=== PATIENT | female | born 1950 | race Caucasian/White ===

== ENCOUNTER 2017-09-12 20:39 | Inpatient (IN) | payer OTHER, MEDICARE ==
[~2017-09-12] VITALS: Ht 160 cm; Wt 85.1 kg
[~2017-09-12 20:39] MED LIST: CARV3.125 PO; ECOT81TA2 PO; FURO20 PO; GLUCOMETER XX; GLUCOMTESTSTRIPS XX; KCL10 PO; LEVO50TA4 PO; LISI10 PO; METF500 PO; PRAS10TA PO; PRAV40 PO; VITA20003; Z.0.LANCETS XX
[2017-09-12] MEDS ORDERED: SODIUM CHLORIDE 0.9% FLUSH 10 ML FLUSH IVF PRN (21:00)
[2017-09-12] MEDS ORDERED: LIDOCAINE HCL 1% PF 30 ML VIAL INFIL ONE (21:00)
[2017-09-12 21:03] VITALS: BP_DIAS 61; PULSE 104; RESP 18; O2SAT 100
--- NOTE | 2017-09-12 21:05 | PD ---
HPI Chief Complaint: Syncope/Near-Syncope Time Seen by Provider: 20:50 Travel History International Travel<30 days: No Contact w/Intl Traveler<30days: No Traveled to known affect area: No History of Present Illness HPI This is a 66-year-old female to history of coronary artery disease, hypertension , diabetes, CHF. She presents for evaluation of lightheadedness. She reports a prior to arrival she was walking to the bathroom when she became lightheaded/ dizzy and fell the ground. She hit her head and sustained an occipital scalp laceration. No loss of consciousness. She is complaining of mild aching headache, aggravated by trauma, no alleviating factors. She denies chest pain, shortness of breath, palpitations, nausea or vomiting, blurred vision. She is on Plavix. The paramedics note PVCs on ECG monitoring. Last tetanus vaccination within 5 years. No other complaints. PFSH Past Medical History Blood Disorders: No Cancer: No Cardiovascular Problems: No Diabetes: Yes Diminished Hearing: Yes (RINGING IN HER EARS) Gastrointestinal Disorders: No Genitourinary: No Hypertension: Yes Musculoskeletal: No Neurologic: No Psychiatric: No Reproductive: No Respiratory: No Thyroid Disease: Yes (2/3 PARATHRYROID REMOVED) Past Surgical History Appendectomy: Yes (UNK) Section: Yes (X2) Cholecystectomy: Yes Tonsillectomy: Yes (UNK) Other Surgery: Yes (PARATHYROID REMOVAL) Social History Alcohol Use: No Tobacco Use: No Substance Use: No Allergies-Medications (Allergen,Severity, Reaction): Coded Allergies: procaine (Unverified Allergy, Severe, 06/09/17) Reported Meds & Prescriptions Reported Meds & Active Scripts Active Lasix 20 Mg Tab (Furosemide) 20 Mg Tab 20 Mg PO BID 30 Days Take at 8am and 3pm every day. Take with potassium replacement. Glucophage 500 mg (Metformin HCl) 500 Mg Tab 500 Mg PO BIDPC 30 Days Pravastatin Sodium 40 Mg Tab 40 Mg PO HS 30 Days Klor-Con 10 (Potassium Chloride) 10 Meq Tabcr 10 Meq PO BID 30 Days Take twice a day with Lasix. Prinivil 10 mg (Lisinopril) 10 Mg Tab 10 Mg PO DAILY 30 Days Coreg 3.125 mg (Carvedilol) 3.125 Mg Tab 3.125 Mg PO Q12 30 Days Ecotrin (Aspirin) 81 Mg Tabec 81 Mg PO DAILY 30 Days Glucometer Test Strips (Glucomteststrips) Box 1 Box XX TIDACHS Lancets Box 1 Box XX Glucometer Kit 1 Kit XX Reported Vitamin D (Cholecalciferol) 2,000 Unit Cap Levothyroxine 50 mcg (Levothyroxine Sodium) 50 Mcg Tab 50 Mcg PO DAILY Review of Systems Except as stated in HPI: all other systems reviewed are Neg Physical Exam Narrative GENERAL: Well-developed well-nourished female in no acute distress SKIN: Warm and dry. 1 cm occipital scalp laceration stage I sacral pressure ulcer noted which the patient is aware of. HEAD: Skin as noted above with no underlying bony step-off. Normocephalic. EYES: Pupils equal and round. No scleral icterus. No injection or drainage. ENT: No nasal bleeding or discharge. Mucous membranes pink and moist. NECK: Trachea midline. No JVD. CARDIOVASCULAR: Regular rate and rhythm. No murmur appreciated. RESPIRATORY: No accessory muscle use. Clear to auscultation. Breath sounds equal bilaterally. GASTROINTESTINAL: Abdomen soft, non-tender, nondistended. Hepatic and splenic margins not palpable. MUSCULOSKELETAL: No obvious deformities. No clubbing. No cyanosis. No edema. NEUROLOGICAL: Awake and alert. No obvious cranial nerve deficits. Motor grossly within normal limits. Normal speech. PSYCHIATRIC: Appropriate mood and affect; insight and judgment normal. Data Data Last Documented VS Vital Signs Date Time Temp Pulse Resp B/P (MAP) Pulse Ox O2 Delivery O2 Flow Rate FiO2 09/12/17 21:17 150/61 (90) 09/12/17 21:06 86 100 Nasal Cannula 2.00 09/12/17 21:03 18 Orders Orders Electrocardiogram (09/12/17 20:53) Complete Blood Count With Diff (09/12/17 20:53) Comprehensive Metabolic Panel (09/12/17 20:53) Magnesium (Mg) (09/12/17 20:53) Ckmb (Isoenzyme) Profile (09/12/17 20:53) Troponin I (09/12/17 20:53) Urinalysis - C+S If Indicated (09/12/17 20:53) Blood Glucose (09/12/17 20:53) Ecg Monitoring (09/12/17 20:53) Iv Access Insert/Monitor (09/12/17 20:53) Oximetry (09/12/17 20:53) Sodium Chloride 0.9% Flush (Ns Flush) (09/12/17 21:00) Lidocaine Pf 1% Inj (Xylocaine-Mpf 1% In (09/12/17 21:00) Ct Brain W/O Iv Contrast(Rout) (09/12/17 ) Orthostatic Vital Signs (09/12/17 21:06) Labs Laboratory Tests Test 09/12/17 21:12 White Blood Count 16.4 TH/MM3 Red Blood Count 4.10 MIL/MM3 Hemoglobin 11.7 GM/DL Hematocrit 36.3 % Mean Corpuscular Volume 88.6 FL Mean Corpuscular Hemoglobin 28.6 PG Mean Corpuscular Hemoglobin Concent 32.3 % Red Cell Distribution Width 15.3 % Platelet Count 391 TH/MM3 Mean Platelet Volume 9.0 FL Neutrophils (%) (Auto) 84.9 % Lymphocytes (%) (Auto) 5.5 % Monocytes (%) (Auto) 7.8 % Eosinophils (%) (Auto) 1.3 % Basophils (%) (Auto) 0.5 % Neutrophils # (Auto) 14.0 TH/MM3 Lymphocytes # (Auto) 0.9 TH/MM3 Monocytes # (Auto) 1.3 TH/MM3 Eosinophils # (Auto) 0.2 TH/MM3 Basophils # (Auto) 0.1 TH/MM3 CBC Comment DIFF FINAL Differential Comment Blood Urea Nitrogen 34 MG/DL Creatinine 1.79 MG/DL Random Glucose 181 MG/DL Total Protein 6.4 GM/DL Albumin 2.5 GM/DL Calcium Level 8.9 MG/DL Magnesium Level 1.8 MG/DL Alkaline Phosphatase 75 U/L Aspartate Amino Transf (AST/SGOT) 13 U/L Alanine Aminotransferase (ALT/SGPT) 14 U/L Total Bilirubin 0.3 MG/DL Sodium Level 138 MEQ/L Potassium Level 4.6 MEQ/L Chloride Level 103 MEQ/L Carbon Dioxide Level 26.5 MEQ/L Anion Gap 9 MEQ/L Estimat Glomerular Filtration Rate 28 ML/MIN Total Creatine Kinase 53 U/L Troponin I LESS THAN 0.02 NG/ML [facility] Medical Decision Making Medical Screen Exam Complete: Yes Emergency Medical Condition: Yes Medical Record Reviewed: Yes Differential Diagnosis Dehydration, electrolyte abnormality, closed head injury, intracranial hemorrhage, arrhythmia, symptomatic anemia Narrative Course The patient was placed on ECG monitoring and pulse oximetry. 12 EKG obtained. Plan is for basic lab work, CT of the brain, the laceration will be repaired with concha, she verbally consents. Lab work reveals a WBC count of 16.4, EKG reveals sinus rhythm, RBB, PVCs, T- wave inversions in the lateral leads. This plan time the plan is to admit the patient overnight for observation. She is agreeable. Procedures Procedure Narrative LACERATION LOCATION: Right occipital scalp LENGTH: 1 cm NUMBER OF STITCHES/CONCHA: 4 REPAIR: The area of the laceration was prepped with Betadine and sterilely draped. The laceration was infiltrated with 1% lidocaine. The wound was copiously irrigated and explored without evidence of foreign body, tendon injury or neurovascular injury. The wound was closed using concha. This was a single layer repair. A sterile dressing was applied. The patient was advised to keep the dressing clean and dry. Patient tolerated the procedure well. Diagnosis Primary Impression: Dizziness Additional Impressions: Scalp laceration Qualified Codes: S01.01XA - Laceration without foreign body of scalp, initial encounter Leukocytosis Qualified Codes: D72.829 - Elevated white blood cell count, unspecified Admitting Information Admitting Physician Requests: Observation Vinnie El Sep 12, 2017 21:05
[2017-09-12 21:17] VITALS: BP 150/61
[2017-09-12 21:23] LABS: BASOPHIL # 0.1 TH/MM3 (0-0.2); BASOPHIL % 0.5 % (0.0-2.0); EOSINOPHIL # 0.2 TH/MM3 (0-0.4); EOSINOPHIL % 1.3 % (0.0-4.0); HEMATOCRIT 36.3 % (35.0-46.0); HEMO FLAGS DIFF FINAL; LYMPH % 5.5 % (9.0-44.0); LYMPHOCYTE # 0.9 TH/MM3 (1.0-4.8); MEAN CELL VOLUME 88.6 FL (80.0-100.0); MEAN CORPUSCULAR HEMOGLOBIN 28.6 PG (27.0-34.0); MEAN CORPUSCULAR HGB CONC 32.3 % (32.0-36.0); MONO % 7.8 % (0.0-8.0); NEUT % 84.9 % (16.0-70.0); PLATELET COUNT 391 TH/MM3 (150-450); RED CELL DISTRIBUTION WIDTH 15.3 % (11.6-17.2); WHITE BLOOD COUNT 16.4 TH/MM3 (4.0-11.0)
--- NOTE | 2017-09-12 21:51 | RADRPT ---
EXAM DATE/TIME: 09/12/2017 21:41 [facility] COMPARISON: No previous studies available for comparison. INDICATIONS : Trauma; fall. Small laceration to right parietal region. RADIATION DOSE: 33.01 CTDIvol (mGy) MEDICAL HISTORY : Cardiovascular disease. Diabetes mellitus type 2. SURGICAL HISTORY : Appendectomy. Cholecystectomy.Hysterectomy. ENCOUNTER: Initial ACUITY: 1 day PAIN SCALE: 5/10 LOCATION: cranial TECHNIQUE: Multiple contiguous axial images were obtained of the head. Using automated exposure control and adj ustment of the mA and/or kV according to patient size, radiation dose was kept as low as reasonably a chievable to obtain optimal diagnostic quality images. DICOM format image data is available electro nically for review and comparison. FINDINGS: CEREBRUM: The ventricles are normal for age. No evidence of midline shift, mass lesion, hemorrhage or acute in farction. No extra-axial fluid collections are seen. POSTERIOR FOSSA: The cerebellum and brainstem are intact. The 4th ventricle is midline. The cerebellopontine angle i s unremarkable. EXTRACRANIAL: There is a small right parietal scalp contusion with skin concha. Small amount of fluid seen in the right maxillary air cell. SKULL: The calvaria is intact. No evidence of skull fracture. CONCLUSION: No bleed or other acute intracranial abnormality. Mild sinus disease. Avery Jonas MD on September 12, 2017 at 21:48 Board Certified Radiologist. This report was verified electronically.
[2017-09-12 21:53] LABS: ALKALINE PHOSPHATASE 75 U/L (45-117); ALT (GPT) 14 U/L (10-53); ANION GAP 9 MEQ/L (5-15); AST (GOT) 13 U/L (15-37); BICARBONATE 26.5 MEQ/L (21.0-32.0); BLOOD UREA NITROGEN 34 MG/DL (7-18); CHLORIDE 103 MEQ/L (98-107); CREATINE KINASE 53 U/L (26-192); GLOMERULAR FILTRATION RATE 28 ML/MIN (>89); MAGNESIUM 1.8 MG/DL (1.5-2.5); POTASSIUM 4.6 MEQ/L (3.5-5.1); SODIUM (NA) 138 MEQ/L (136-145); TOTAL BILIRUBIN ADULT 0.3 MG/DL (0.2-1.0)
[2017-09-12] MEDS ORDERED: BISACODYL 10 MG SUPP RECTAL PRN (22:15)
[2017-09-12] MEDS ORDERED: GLUCAGON 1 MG/ML VIAL OTHER PRN (22:15)
[2017-09-12] MEDS ORDERED: DEXTROSE 50% IN WATER 50 ML VIAL(D50) IV PUSH PRN (22:15)
[2017-09-12] MEDS ORDERED: ONDANSETRON HCL 4 MG/2 ML VIAL IVP PRN (22:15)
[2017-09-12] MEDS ORDERED: LACTULOSE SYRUP 20 GM/30 ML CUP PO PRN (22:15)
[2017-09-12] MEDS ORDERED: SODIUM CHLORIDE 0.9% FLUSH 10 ML FLUSH IV FLUSH PRN (22:15)
[2017-09-12] MEDS ORDERED: SENNOSIDES 8.6 MG TAB PO PRN (22:15)
[2017-09-12] MEDS ORDERED: MAGNESIUM HYDROXIDE SUSP 30 ML CUP PO PRN (22:15)
--- NOTE | 2017-09-12 22:17 | HHI.HP ---
[facility] Primary [facility] Physician Juani Avitia M.D. Admission Diagnosis dizziness, leukocytosis Diagnoses: (1) Near syncope Diagnosis: Principal (2) Fall Diagnosis: Principal (3) Dizziness Diagnosis: Principal (4) Scalp laceration Diagnosis: Principal (5) Leukocytosis Diagnosis: Principal (6) Renal insufficiency Diagnosis: Principal (7) CHF (congestive heart failure) Diagnosis: Principal (8) DM (diabetes mellitus) Diagnosis: Principal Travel History International Travel<30 Days: No Contact w/Intl Traveler <30 Da: No Traveled to Known Affected Are: No History of Present Illness This is a 66-year-old female with a PMH of HTN, CAD, CHF (Echo 01/24/15 w/ EF 40- 45%), DM and Chronic Dizziness who was brought to the ER by EMS secondary to fall w/ near syncope. Per patient she was walking into her bathroom when she had sudden dizziness, called for Daughter but she didn't make it to her in time , +hit head on counter. Pt denies LOC. States she has history of chronic dizziness for which she is on Meclizine. PCP recently decreased Bumex dose due to dizziness. Follows w/ Dr. Caruso as outpatient, states recent Echo 1mo ago w/ improved EF, no records available. On ASA/Plavix. On arrival, BP 150/61 , HR 104, O2 sat 100% on 2L NC. WBC 16.4. Creatinine 1.79, previously 3.03 on 06/25/17. Troponin negative. CT Head Negative. Review of Systems Except as stated in HPI: all other systems reviewed are Neg ROS: 14 point review of systems otherwise negative. Past Family Social History Past Medical History PMH: HTN, CAD, CHF (Echo 01/24/15 w/ EF 40-45%), DM and Chronic Dizziness Past Surgical History PAST SURGICAL HISTORY: Appendectomy, , Cholecystectomy, Tonsillectomy , Parathyroidectomy Allergies: Coded Allergies: procaine (Unverified Allergy, Severe, 06/09/17) Family History PAST FAMILY HISTORY: Reviewed, positive for DM. Social History PAST SOCIAL HISTORY: Negative for alcohol, tobacco or drugs. Physical Exam Vital Signs Vital Signs Date Time Temp Pulse Resp B/P (MAP) Pulse Ox O2 Delivery O2 Flow Rate FiO2 09/12/17 21:17 150/61 (90) 09/12/17 21:06 86 100 Nasal Cannula 2.00 09/12/17 21:03 104 18 /61 100 Physical Exam PE: GENERAL: Pleasant middle-aged white female in no acute distress. Daughter at bedside HEENT: PERRLA, EOMI. No scleral icterus or conjunctival pallor. No lid lag or facial droop. Occipital scalp laceration, s/p concha. CARDIOVASCULAR: Regular rate and rhythm. No obvious murmurs to auscultation. No chest tenderness to palpation. RESPIRATORY: No obvious rhonchi or wheezing. Clear to auscultation. Breath sounds equal bilaterally. GASTROINTESTINAL: Abdomen soft, non-tender, nondistended. BS normal. MUSCULOSKELETAL: Extremities without clubbing, cyanosis, or edema. No obvious deformities. Sacral decubitus ulcer, chronic. NEUROLOGICAL: Awake, alert and oriented x4. No focal neurologic deficits. Moving both upper and lower extremities spontaneously. Laboratory Laboratory Tests Test 09/12/17 21:12 White Blood Count 16.4 Red Blood Count 4.10 Hemoglobin 11.7 Hematocrit 36.3 Mean Corpuscular Volume 88.6 Mean Corpuscular Hemoglobin 28.6 Mean Corpuscular Hemoglobin Concent 32.3 Red Cell Distribution Width 15.3 Platelet Count 391 Mean Platelet Volume 9.0 Neutrophils (%) (Auto) 84.9 Lymphocytes (%) (Auto) 5.5 Monocytes (%) (Auto) 7.8 Eosinophils (%) (Auto) 1.3 Basophils (%) (Auto) 0.5 Neutrophils # (Auto) 14.0 Lymphocytes # (Auto) 0.9 Monocytes # (Auto) 1.3 Eosinophils # (Auto) 0.2 Basophils # (Auto) 0.1 CBC Comment DIFF FINAL Differential Comment Blood Urea Nitrogen 34 Creatinine 1.79 Random Glucose 181 Total Protein 6.4 Albumin 2.5 Calcium Level 8.9 Magnesium Level 1.8 Alkaline Phosphatase 75 Aspartate Amino Transf (AST/SGOT) 13 Alanine Aminotransferase (ALT/SGPT) 14 Total Bilirubin 0.3 Sodium Level 138 Potassium Level 4.6 Chloride Level 103 Carbon Dioxide Level 26.5 Anion Gap 9 Estimat Glomerular Filtration Rate 28 Total Creatine Kinase 53 Troponin I LESS THAN 0.02 Result Diagram: 09/12/17211109/12/172111 Caprini VTE Risk Assessment Caprini VTE Risk Assessment: No/Low Risk (score <= 1) Caprini Risk Assessment Model Point Value = 1 Point Value = 2 Point Value = 3 Point Value = 5 Age 41-60 Minor surgery BMI > 25 kg/m2 Swollen legs Varicose veins or History of unexplained or recurrent spontaneous Oral contraceptives or hormone replacement Sepsis (< 1 month) Serious lung disease, including pneumonia (< 1 month) Abnormal pulmonary function Acute myocardial infarction Congestive heart failure (< 1 month) History of inflammatory bowel disease Medical patient at bed rest Age 61-74 Arthroscopic surgery Major open surgery (> 45 min) Laparoscopic surgery (> 45 min) Malignancy Confined to bed (> 72 hours) Immobilizing plaster cast Central venous access Age >= 75 History of VTE Family history of VTE Factor V Leiden Prothrombin [id number] Lupus anticoagulant Anticardiolipin antibodies Elevated serum homocysteine Heparin-induced thrombocytopenia Other congenital or acquired thrombophilia Stroke (< 1 month) Elective arthroplasty Hip, pelvis, or leg fracture Acute spinal cord injury (< 1 month) Prophylaxis Regimen Total Risk Factor Score Risk Level Prophylaxis Regimen 0-1 Low Early ambulation 2 Moderate Order ONE of the following: *Sequential Compression Device (SCD) *Heparin 5000 units SQ BID 3-4 Higher Order ONE of the following medications: *Heparin 5000 units SQ TID *Enoxaparin/Lovenox 40 mg SQ daily (WT < 150 kg, CrCl > 30 mL/min) *Enoxaparin/Lovenox 30 mg SQ daily (WT < 150 kg, CrCl > 10-29 mL/min) *Enoxaparin/Lovenox 30 mg SQ BID (WT < 150 kg, CrCl > 30 mL/min) AND/OR *Sequential Compression Device (SCD) 5 or more Highest Order ONE of the following medications: *Heparin 5000 units SQ TID (Preferred with Epidurals) *Enoxaparin/Lovenox 40 mg SQ daily (WT < 150 kg, CrCl > 30 mL/min) *Enoxaparin/Lovenox 30 mg SQ daily (WT < 150 kg, CrCl > 10-29 mL/min) *Enoxaparin/Lovenox 30 mg SQ BID (WT < 150 kg, CrCl > 30 mL/min) AND *Sequential Compression Device (SCD) Assessment and Plan Problem List: (1) Near syncope ICD Code: R55 - Syncope and collapse (2) Fall ICD Code: W19.XXXA - Unspecified fall, initial encounter (3) Dizziness ICD Code: R42 - Dizziness and giddiness (4) Scalp laceration ICD Code: S01.01XA - Laceration without foreign body of scalp, initial encounter Status: Acute (5) Renal insufficiency ICD Code: N28.9 - Disorder of kidney and ureter, unspecified (6) Leukocytosis ICD Code: D72.829 - Elevated white blood cell count, unspecified (7) CHF (congestive heart failure) ICD Code: I50.9 - CHF (congestive heart failure) Status: Acute (8) DM (diabetes mellitus) ICD Code: E11.9 - Type 2 diabetes mellitus without complications Assessment and Plan A/P: 1. Near Syncope: c/o acute onset of dizziness while walking to the bathroom w / near syncopal event. Initial trop negative, EKG w/ PVC's and lateral T-wave inversions. Admit for Observation, Telemetry, check serial cardiac enzymes to r /o cardiac ischemia. 2. Fall: w/ head trauma, CT Head w/ no acute findings, images reviewed by me. PT for eval/tx. 3. Scalp Laceration: secondary to above, s/p concha in ER, c/o headache, analgesics/antiemetics as needed. 4. Dizziness: Chronic. On Meclizine at home, likely compounded by over- diuresis. IVF-caution w/ CHF. 5. CHF: Chronic. Systolic/Diastolic. Cath 08/14/16 s/p JOHN to RCA, noted to have Diastolic Dysfunction. Echo 01/24/15 w/ EF 40-45%. States recent Echo w/ Dr. Caruso w/ improved EF, records unavailable. No evidence of fluid overload at this time. Resume home medications. Consult Dr. Caruso as needed. 6. Leukocytosis: WBC 16.4. No obvious infectious etiology. U/a pending. Repeat labs in am. 7. Renal Insufficiency: Chronic. Creatinine 1.79, previously 3.03 on . IVF-caution w/ CHF, repeat labs in am. 8. DM: Sliding scale w/ Accu-Cheks. Hold Metformin. 9. DVT Prophylaxis: SCD/Teds. 10. Social work for d/c planning as needed 11. Case discussed w/ ER physician at length. Problem Qualifiers (1) Scalp laceration: Qualified Codes: S01.01XA - Laceration without foreign body of scalp, initial encounter Mariel Schmidt MD Sep 12, 2017 22:17
--- NOTE | 2017-09-12 22:26 | PD ---
Physical Exam Date Seen by Provider: Sep 12, 2017 Time Seen by Provider: 21:30 Narrative I, Dr. Ruiz, have reviewed the advance practice practitioner's documentation and am in agreement, met with the patient face to face, made the diagnosis, and the medical decision making was done by me. *My assessment and Findings: Patient seen and evaluated with PA, presenting here with near syncopal episode, please see PA note for further details. On evaluation, she is awake, oriented 3, and has no focal neurological deficits. EKG shows normal sinus rhythm at a rate of 80 bpm with a right bundle-branch block pattern, frequent PVCs. T-wave inversions are notable in the lateral leads. No signs of acute ST-T elevations. Laboratory Tests Test 09/12/17 21:12 White Blood Count 16.4 TH/MM3 (4.0-11.0) Neutrophils (%) (Auto) 84.9 % (16.0-70.0) Lymphocytes (%) (Auto) 5.5 % (9.0-44.0) Neutrophils # (Auto) 14.0 TH/MM3 (1.8-7.7) Lymphocytes # (Auto) 0.9 TH/MM3 (1.0-4.8) Monocytes # (Auto) 1.3 TH/MM3 (0-0.9) Blood Urea Nitrogen 34 MG/DL (7-18) Creatinine 1.79 MG/DL (0.50-1.00) Random Glucose 181 MG/DL (74-106) Albumin 2.5 GM/DL (3.4-5.0) Aspartate Amino Transf (AST/SGOT) 13 U/L (15-37) Estimat Glomerular Filtration Rate 28 ML/MIN (>89) Troponin I LESS THAN 0.02 NG/ML Last [address] 09/12/17 0000 Signed Impressions: Service Date/Time: Tuesday, September 12, 2017 21:41 - CONCLUSION: No bleed or other acute intracranial abnormality. Mild sinus disease. Avery Jonas MD EKG does show frequent PVCs and a T-wave inversion in the lateral leads. She is not having any current chest pains. Cardiac enzymes are negative. Considering her syncopal episodes, plan would be to admit her for further evaluation. Case is discussed with hospitalist for admission. Data Data Last Documented VS Vital Signs Date Time Temp Pulse Resp B/P (MAP) Pulse Ox O2 Delivery O2 Flow Rate FiO2 09/12/17:17 150/61 (90) 09/12/17 21:06 86 100 Nasal Cannula 2.00 09/12/17 21:03 18 Orders Orders Electrocardiogram (09/12/17 20:53) Complete Blood Count With Diff (09/12/17 20:53) Comprehensive Metabolic Panel (09/12/17 20:53) Magnesium (Mg) (09/12/17 20:53) Ckmb (Isoenzyme) Profile (09/12/17 20:53) Troponin I (09/12/17 20:53) Urinalysis - C+S If Indicated (09/12/17 20:53) Blood Glucose (09/12/17 20:53) Ecg Monitoring (09/12/17 20:53) Iv Access Insert/Monitor (09/12/17 20:53) Oximetry (09/12/17 20:53) Sodium Chloride 0.9% Flush (Ns Flush) (09/12/17 21:00) Lidocaine Pf 1% Inj (Xylocaine-Mpf 1% In (09/12/17 21:00) Ct Brain W/O Iv Contrast(Rout) (09/12/17 ) Orthostatic Vital Signs (09/12/17 21:06) Admit Order (Ed Use Only) (09/12/17 22:16) Labs Laboratory Tests Test 09/12/17 21:12 White Blood Count 16.4 TH/MM3 Red Blood Count 4.10 MIL/MM3 Hemoglobin 11.7 GM/DL Hematocrit 36.3 % Mean Corpuscular Volume 88.6 FL Mean Corpuscular Hemoglobin 28.6 PG Mean Corpuscular Hemoglobin Concent 32.3 % Red Cell Distribution Width 15.3 % Platelet Count 391 TH/MM3 Mean Platelet Volume 9.0 FL Neutrophils (%) (Auto) 84.9 % Lymphocytes (%) (Auto) 5.5 % Monocytes (%) (Auto) 7.8 % Eosinophils (%) (Auto) 1.3 % Basophils (%) (Auto) 0.5 % Neutrophils # (Auto) 14.0 TH/MM3 Lymphocytes # (Auto) 0.9 TH/MM3 Monocytes # (Auto) 1.3 TH/MM3 Eosinophils # (Auto) 0.2 TH/MM3 Basophils # (Auto) 0.1 TH/MM3 CBC Comment DIFF FINAL Differential Comment Blood Urea Nitrogen 34 MG/DL Creatinine 1.79 MG/DL Random Glucose 181 MG/DL Total Protein 6.4 GM/DL Albumin 2.5 GM/DL Calcium Level 8.9 MG/DL Magnesium Level 1.8 MG/DL Alkaline Phosphatase 75 U/L Aspartate Amino Transf (AST/SGOT) 13 U/L Alanine Aminotransferase (ALT/SGPT) 14 U/L Total Bilirubin 0.3 MG/DL Sodium Level 138 MEQ/L Potassium Level 4.6 MEQ/L Chloride Level 103 MEQ/L Carbon Dioxide Level 26.5 MEQ/L Anion Gap 9 MEQ/L Estimat Glomerular Filtration Rate 28 ML/MIN Total Creatine Kinase 53 U/L Troponin I LESS THAN 0.02 NG/ML MDM Medical Record Reviewed: Yes Supervised Visit with MARION: Yes Diagnosis Primary Impression: Dizziness Additional Impressions: Leukocytosis Qualified Codes: D72.829 - Elevated white blood cell count, unspecified Scalp laceration Qualified Codes: S01.01XA - Laceration without foreign body of scalp, initial encounter Admitting Information Admitting Physician Requests: it Nkechi Ruiz MD Sep 12, 2017 22:26
[2017-09-12] MEDS ORDERED: SODIUM CHLOR 0.9% 1000 ML INJ 1,000 ML IV SCH (23:00)
[2017-09-12] MEDS ORDERED: DEXT 5%-NACL 0.45% 500 ML INJ 500 ML IV ONE (23:15)
[2017-09-12 23:48] VITALS: BP_SYST 103; BP_SYST 177; BP_DIAS 71; BP_DIAS 81; RESP 19; RESP 20
[2017-09-13] VITALS (25 sets, daily range): BP systolic 111–129; BP diastolic 51–74; PULSE 67–91; RESP 16–18; TEMP 97.1–98.4; O2SAT 95–100
[2017-09-13] MEDS: ACETAMINOPHEN 325 MG TAB PO PRN ×2 (00:37→10:18)
[2017-09-13] MEDS ORDERED: DEXT 5% IV ONE (01:00)
[2017-09-13] MEDS ORDERED: NACL 0.45% IV ONE (01:00)
[2017-09-13] MEDS ORDERED: AMIODARONE INJ 150 MG in DEXTROSE 5% IN WATER 100ML INJ 100 ML IV ONE ×2 (04:33)
[2017-09-13] MEDS: AMIODARONE INJ 450 MG in DEXTROSE 5% IN WATE(EXCEL) INJ 241 ML IV PRN ×2 (05:17)
[2017-09-13] MEDS: INSULIN ASPART SUPPLEMENTAL SCALE SQ SCH ×4 (07:23→21:00)
--- NOTE | 2017-09-13 08:49 | HHI.PR ---
Subjective Remarks Follow-up for dizziness/presyncope Patient had an episode of ventricular tachycardia overnight, amiodarone started. Presently, patient denies any chest pain or dizziness. Blood pressure is low, orthostatics being taken. Troponin negative 2 so far. Per patient, she had an echocardiogram Thursday in her reducing salon attendant's office. Objective Vitals Vital Signs Date Time Temp Pulse Resp B/P (MAP) Pulse Ox O2 Delivery O2 Flow Rate FiO2 09/13/17 06:00 78 09/13/17 05:17 82 103/57 09/13/17 05:08 90 106/53 09/13/17 05:00 88 09/13/17 04:50 98.0 79 18 119/51 (73) 99 09/13/17 04:50 79 09/13/17 03:35 97.6 79 16 112/57 (75) 95 09/13/17 00:57 98.4 84 16 129/60 (83) 100 09/12/17 23:48 09/12/17 23:48 88 19 177/81 (113) 88 20 103/71 (82) 09/12/17 21:17 150/61 (90) 09/12/17 21:06 86 100 Nasal Cannula 2.00 09/12/17 21:03 104 18 /61 100 Result Diagram: 09/12/17211109/12/172111 Imaging Last Impressions Head CT 09/12/17 0000 Signed Impressions: Service Date/Time: Tuesday, September 12, 2017 21:41 - CONCLUSION: No bleed or other acute intracranial abnormality. Mild sinus disease. Avery Jonas MD Objective Remarks GENERAL: Not in distress but appears not comfortable. HEENT: PERRLA, EOMI. No scleral icterus or conjunctival pallor. No lid lag or facial droop. Occipital scalp laceration, s/p concha. CARDIOVASCULAR: Regular rate and rhythm. No obvious murmurs to auscultation. No chest tenderness to palpation. RESPIRATORY: No obvious rhonchi or wheezing. Clear to auscultation. Breath sounds equal bilaterally. GASTROINTESTINAL: Abdomen soft, non-tender, nondistended. BS normal. MUSCULOSKELETAL: Extremities without clubbing, cyanosis, or edema. No obvious deformities. Sacral decubitus ulcer, chronic. NEUROLOGICAL: Awake, alert and oriented x4. No focal neurologic deficits A/P Problem List: (1) Near syncope ICD Code: R55 - Syncope and collapse (2) Fall ICD Code: W19.XXXA - Unspecified fall, initial encounter (3) Dizziness ICD Code: R42 - Dizziness and giddiness (4) Scalp laceration ICD Code: S01.01XA - Laceration without foreign body of scalp, initial encounter Status: Acute (5) Renal insufficiency ICD Code: N28.9 - Disorder of kidney and ureter, unspecified (6) Leukocytosis ICD Code: D72.829 - Elevated white blood cell count, unspecified (7) CHF (congestive heart failure) ICD Code: I50.9 - CHF (congestive heart failure) Status: Acute (8) DM (diabetes mellitus) ICD Code: E11.9 - Type 2 diabetes mellitus without complications Assessment and Plan This is a 66-year-old female with history of systolic congestive heart failure and diabetes mellitus presenting with presyncope. Fall secondary to Presyncope-complained of acute dizziness and presyncopal event , troponin negative 2. EKG with PVCs and lateral T wave inversions. Patient had an episode of ventricular tachycardia, please see below. Obtain echocardiogram from the office done 4 days ago. With head trauma, CT scan of the head unremarkable. Scalp laceration status post concha from the emergency department. Ventricular tachycardia-nonsustained, discussed with cardiology, patient would likely need a cardiac catheterization, amiodarone started. Orthostatic hypotension- initial orthostatics positive, rechecking now, if positive, will need more fluids. Caution with history of CHF. Patient also has history of chronic dizziness, on meclizine. Chronic systolic and diastolic CHF-Cath 08/14/16 s/p JOHN to RCA, noted to have Diastolic Dysfunction. Echo 01/24/15 w/ EF 40-45%. States recent Echo w/ Dr. Caruso w/ improved EF, will obtain records from outpatient. Records unavailable. No evidence of fluid overload at this time. Resume home medications. Leukocytosis: WBC 16.4. No obvious infectious etiology. U/a pending. Awaiting repeat labs today. Repeat CBC tomorrow. Renal Insufficiency: Chronic. Creatinine 1.79, previously 3.03 on 06/25/17. IVF-caution w/ CHF, awaiting labs today, repeat labs in am. DM: Sliding scale w/ Accu-Cheks. Hold Metformin. DVT Prophylaxis: SCD/Teds. Start physical therapy after cardiac catheterization. Discharge Planning Discharge to home versus home health care once cleared by cardiology. She will likely need a cardiac catheterization. Problem Qualifiers (1) Scalp laceration: Qualified Codes: S01.01XA - Laceration without foreign body of scalp, initial encounter Shelly Dubon MD Sep 13, 2017 08:49
[2017-09-13] MEDS: SODIUM CHLORIDE 0.9% FLUSH 10 ML FLUSH IV FLUSH SCH ×2 (09:00→21:00)
[2017-09-13] MEDS: DOCUSATE SODIUM 50 MG/SENNA 8.6 MG TAB PO SCH ×2 (09:00→22:15)
[2017-09-13] MEDS ORDERED: SODIUM CHLOR 0.9% 1000 ML INJ 1,000 ML IV SCH (09:30)
--- NOTE | 2017-09-13 10:03 | MB ---
cc: ANTHONY NOLASCO MD DATE OF CONSULTATION: 09/13/2017 REASON FOR CONSULTATION: Syncope and VT HISTORY OF PRESENT ILLNESS The patient is a pleasant 66-year-old woman who sees my partner, Dr. Caruso, for history of hypertension, coronary artery disease, congestive heart failure, diabetes and chronic dizziness who presented with what seems like a syncopal episode though it is somewhat unclear if she truly lost consciousness. The patient was using her walker and ended up on the floor unable to get up, and again it is unclear if she lost consciousness. She was notably orthostatic on admission and admitted on telemetry where she had a fast 21 beat of ventricular tachycardia seen. This occurred in the middle the night so it is unclear if she would have been symptomatic. Currently she is feeling very weak, but denies specific symptoms such as chest pain, shortness of breath. Again, she has had somewhat chronic lightheadedness and dizziness, including a true syncopal episode she says back in May which elicited a hospitalization at [facility]. PAST MEDICAL HISTORY: As above. CURRENT MEDICATIONS Amiodarone Glucagon. ALLERGIES PROCAINE PHYSICAL EXAMINATION VITAL SIGNS: Afebrile, pulse 76, respiratory rate 18, BP 111/65 sating 97%. General: Pleasant obese woman appearing much older than her stated age. Neck: No JVD. Lungs: Clear to auscultation bilaterally. Cardiovascular: Regular rate and rhythm, 1 to 2/6 systolic murmur is appreciated. Abdomen: Benign. Extremities: No edema. LABORATORY DATA Sodium 138, potassium 4.6, chloride 103, bicarb 26.5, BUN 34, creatinine 1.79. Cardiac enzymes are negative x2. INR is 1.0, white count 16.4, hematocrit 36.3, platelets 391. IMAGING STUDIES: Head CT was negative. EKG shows sinus rhythm with PVCs and anterolateral T-wave changes consistent with ischemia. Telemetry showed a 21 beat of fast ventricular tachycardia occurring at about 250 beats per minute. IMPRESSION: 1. VT. Patient with a history of coronary artery disease and reduced ejection fraction and fast VT, will likely require cardiac catheterization, somewhat complicated by her renal insufficiency. I will discussed the case with Dr. Gonsalves. Invariably potentially a stress test can be done first but probably a cardiac catheterization will be required if the risk is not too high. She will be getting fluids and hopefully her renal function will improve. 2. Dizziness. It is unclear if her dizziness is actually related to this episode of VT, because she is also orthostatic. She is getting IV fluids. Further recommendations will be based on the ischemic workup as well as getting the results of the echocardiogram which apparently only occurred a couple of days ago in our office, so will not be performed here. Thank you again for the opportunity to participate in this patient's care. MD BHAVANA Hurt/TERRY /9:24 AM /9:58 AM
[2017-09-13] MEDS: SODIUM CHLOR 0.9% 1000 ML INJ 1,000 ML IV SCH ×2 (11:22→21:22)
[2017-09-13] MEDS ORDERED: diphenhydrAMINE HCL 50 MG CAP PO SCH (11:30)
[2017-09-13] MEDS ORDERED: DIAZEPAM 10 MG TAB PO SCH (11:30)
[2017-09-13] MEDS ORDERED: MIDAZOLAM HCL 2 MG/2 ML VIAL IV PUSH SCH (11:30)
--- NOTE | 2017-09-13 11:50 | MB ---
cc: TEO LLANES DATE OF CONSULTATION: 09/13/2017 REASON FOR CONSULTATION: Consider cardiac catheterization. HISTORY OF PRESENT ILLNESS The patient is a 66-year-old white female, followed in our office by Dr. Mono Caruso, with a history of congestive heart failure, coronary disease, diabetes, hypertension, hyperlipidemia, who was brought to the hospital after a syncopal episode. The patient was trying to back into the bathroom with her walker when she suddenly lost consciousness. She believes she was unconscious for only a second or two. There was no definite preceding lightheadedness, palpitations, pain. An hour prior to the episode, she did feel mildly lightheaded for a few minutes. Here in the hospital, monitoring has revealed an episode of nonsustained ventricular tachycardia. The patient also reports an episode of syncope about three months ago, although she was subsequently hospitalized for urosepsis. The patient denies any recent chest pain, although she has been sedentary. She also denies shortness of breath, palpitations, pedal edema, paroxysmal nocturnal dyspnea, fevers. PAST MEDICAL HISTORY 1. Congestive heart failure January 2015 with echocardiogram at that time showing reduced ejection fraction of 40-45%. 2. Hypertension. 3. Diabetes. 4. Coronary artery disease with cardiac catheterization 08/14/16 showing minimal left main, minimal left circumflex, minimal ramus intermedius disease, 60% mid LAD which was evaluated with fractional flow reserve measurement (0.85), 90% distal, 80% mid, 70% ostial right coronary lesions which were stented with 2.5, 2.75, and 3.0 mm drug-eluting stents respectively by Dr. Reilly Brar. PAST SURGICAL HISTORY 1. Appendectomy 2. section twice. 3. Cholecystectomy. 4. Tonsillectomy 5. Subtotal parathyroidectomy CURRENT CARDIAC MEDICATIONS Amiodarone drip ALLERGIES PROCAINE FAMILY HISTORY Noncontributory. SOCIAL HISTORY The patient denies any history of alcohol or tobacco abuse. REVIEW OF SYSTEMS: As in the history of present illness otherwise negative or noncontributory. She also denies headache, visual changes, unilateral weakness or numbness, abdominal pain, melena, dyspepsia, bright red blood per rectum. PHYSICAL EXAMINATION: On physical examination her blood pressure 111/65 with a pulse of 76, respirations 18. GENERAL: She is a well-developed, well-nourished white female in no acute distress. HEENT examination: Jugular venous pressure is normal. Carotid pulses are 2+ bilaterally and without bruits. CHEST: Examination of the chest reveals clear lung gray anteriorly. CARDIAC: She has a regular rhythm and rate without S3-S4 or murmur. ABDOMEN: On abdominal examination she has a soft, nontender abdomen. Bowel sounds are present. There is no definite hepatosplenomegaly. EXTREMITIES: Examination of the extremities reveals no clubbing, cyanosis or edema. Peripheral pulses are normal throughout. LABORATORY DATA Includes WBC 16.4, hemoglobin 11.7, platelets 391, potassium 4.6, BUN 34, creatinine 1.79, negative cardiac enzymes. EKG shows sinus rhythm with frequent PVC, right bundle-branch block, lateral T-wave changes, consider ischemia. IMPRESSION Syncope, nonsustained ventricular tachycardia in a 66-year-old white female with a history of congestive heart failure, hypertension, diabetes, coronary artery disease, status post percutaneous coronary intervention last year. I have been asked to consider the patient for cardiac catheterization. At this point in light of the ventricular tachyarrhythmia, I would agree with the need for coronary angiography. Cardiac enzymes are negative for myocardial infarction. She has had no definite angina symptoms recently although she is sedentary. The patient does have more pronounced lateral T-wave changes on EKG. Her kidney function has improved with creatinine now 1.79. The potential risks of cardiac catheterization including but not limited to , myocardial infarction, stroke, arrhythmia, bleeding, infection, renal failure have been outlined to the patient. She agrees to proceed. RECOMMENDATIONS 1. Cardiac catheterization tomorrow with attempts to minimize dye load. 2. Daily aspirin. 3. Beta whit therapy. Teo Llanes MD Kwaku/TERRY /11:21 AM /11:42 AM MTDKushal
[2017-09-13] MEDS: ASPIRIN EC 81 MG TABEC PO SCH (12:00)
[2017-09-13] MEDS: CARVEDILOL 3.125 MG TAB PO SCH ×2 (12:00→22:15)
[2017-09-13 12:27] LABS: AUTOMATED NEUTROPHIL # 10.1 TH/MM3 (1.8-7.7); BASOPHIL # 0.1 TH/MM3 (0-0.2); BASOPHIL % 0.6 % (0.0-2.0); EOSINOPHIL # 0.2 TH/MM3 (0-0.4); EOSINOPHIL % 1.9 % (0.0-4.0); HEMATOCRIT 34.5 % (35.0-46.0); HEMO FLAGS DIFF FINAL; LYMPH % 6.6 % (9.0-44.0); LYMPHOCYTE # 0.8 TH/MM3 (1.0-4.8); MEAN CELL VOLUME 89.3 FL (80.0-100.0); MEAN CORPUSCULAR HEMOGLOBIN 28.2 PG (27.0-34.0); MEAN CORPUSCULAR HGB CONC 31.6 % (32.0-36.0); MONO % 9.3 % (0.0-8.0); NEUT % 81.6 % (16.0-70.0); PLATELET COUNT 338 TH/MM3 (150-450); RED BLOOD COUNT 3.86 MIL/MM3 (4.00-5.30); RED CELL DISTRIBUTION WIDTH 15.2 % (11.6-17.2); WHITE BLOOD COUNT 12.4 TH/MM3 (4.0-11.0)
[2017-09-13 13:00] LABS: ALKALINE PHOSPHATASE 75 U/L (45-117); ALT (GPT) 12 U/L (10-53); ANION GAP 10 MEQ/L (5-15); AST (GOT) 8 U/L (15-37); BLOOD UREA NITROGEN 29 MG/DL (7-18); CHLORIDE 103 MEQ/L (98-107); GLOMERULAR FILTRATION RATE 31 ML/MIN (>89); POTASSIUM 3.5 MEQ/L (3.5-5.1); SODIUM (NA) 137 MEQ/L (136-145); TOTAL BILIRUBIN ADULT 0.3 MG/DL (0.2-1.0)
--- NOTE | 2017-09-13 13:00 | EKG ---
Date Performed: 09/12/2017 Time Performed: 21:12:29 PTAGE: 66 years EKG: Sinus rhythm WITH FREQUENT VENTRICULAR PREMATURE COMPLEXES RIGHT BUNDLE BRANCH BLOCK MODERATE T-WAVE ABNORMALITY, CONSIDER LATERAL ISCHEMIA ABNORMAL ECG PREVIOUS TRACING 08/14/16 Compared to prior tracing no significant change DOCTOR: Hu Rosas Interpretating Date/Time 09/13/2017 12:59:02
[2017-09-13] MEDS: ACETAMINOPHEN/HYDROcodone 325 MG/5 MG TAB PO PRN (19:43)
[2017-09-14] VITALS (26 sets, daily range): BP systolic 95–122; BP diastolic 48–64; PULSE 68–86; RESP 16–20; TEMP 97.5–98.2; O2SAT 95–98
[2017-09-14] MEDS: ACETAMINOPHEN/HYDROcodone 325 MG/5 MG TAB PO PRN ×2 (00:04→15:28)
[2017-09-14 06:41] LABS: AUTOMATED NEUTROPHIL # 8.7 TH/MM3 (1.8-7.7); BASOPHIL # 0.1 TH/MM3 (0-0.2); BASOPHIL % 1.1 % (0.0-2.0); EOSINOPHIL # 0.5 TH/MM3 (0-0.4); EOSINOPHIL % 4.3 % (0.0-4.0); HEMATOCRIT 32.6 % (35.0-46.0); HEMO FLAGS DIFF FINAL; LYMPH % 8.9 % (9.0-44.0); MEAN CELL VOLUME 89.4 FL (80.0-100.0); MEAN CORPUSCULAR HEMOGLOBIN 29.3 PG (27.0-34.0); MEAN CORPUSCULAR HGB CONC 32.8 % (32.0-36.0); MONO % 10.1 % (0.0-8.0); NEUT % 75.6 % (16.0-70.0); PLATELET COUNT 277 TH/MM3 (150-450); RED BLOOD COUNT 3.65 MIL/MM3 (4.00-5.30); RED CELL DISTRIBUTION WIDTH 15.3 % (11.6-17.2); WHITE BLOOD COUNT 11.5 TH/MM3 (4.0-11.0)
[2017-09-14 07:14] LABS: BICARBONATE 25.9 MEQ/L (21.0-32.0); POTASSIUM 3.5 MEQ/L (3.5-5.1)
[2017-09-14] MEDS: ACETAMINOPHEN/HYDROcodone 325 MG/10 MG TAB PO PRN ×2 (08:13→22:04)
[2017-09-14] MEDS: ASPIRIN EC 81 MG TABEC PO SCH (08:18)
[2017-09-14] MEDS: CARVEDILOL 3.125 MG TAB PO SCH ×2 (08:18→22:04)
[2017-09-14] MEDS: DOCUSATE SODIUM 50 MG/SENNA 8.6 MG TAB PO SCH ×2 (08:18→22:03)
[2017-09-14] MEDS: INSULIN ASPART SUPPLEMENTAL SCALE SQ SCH ×4 (08:19→23:38)
[2017-09-14] MEDS: SODIUM CHLORIDE 0.9% FLUSH 10 ML FLUSH IV FLUSH SCH ×2 (08:19→21:00)
[2017-09-14] MEDS: SODIUM CHLOR 0.9% 1000 ML INJ 1,000 ML IV SCH ×2 (08:20→17:01)
--- NOTE | 2017-09-14 09:08 | HHI.PR ---
Subjective Remarks in no acute distress. denies chest pain. still with some dizziness. awaiting cardiac cath. Objective Vitals Vital Signs Date Time Temp Pulse Resp B/P (MAP) Pulse Ox O2 Delivery O2 Flow Rate FiO2 09/14/17 08:20 70 122/64 09/14/17 06:14 69 09/14/17 05:48 78 09/14/17 04:32 75 09/14/17 03:30 97.5 70 18 121/56 (77) 98 09/14/17 03:20 79 09/14/17 02:13 76 09/14/17 01:15 82 09/14/17 00:27 74 09/13/17 23:55 78 09/13/17 23:12 97.2 68 17 125/63 (83) 97 09/13/17 22:00 76 09/13/17 21:00 82 09/13/17 20:15 80 09/13/17 19:57 97.1 67 18 126/74 (91) 99 09/13/17 19:57 80 09/13/17 18:12 88 09/13/17 17:33 91 09/13/17 16:12 79 09/13/17 15:42 72 09/13/17 15:33 97.9 72 18 111/64 (80) 99 09/13/17 14:25 80 09/13/17 13:02 90 09/13/17 12:45 75 09/13/17 12:29 16 09/13/17 12:02 97.8 90 18 115/64 (81) 96 09/13/17 11:00 82 09/13/17 10:00 80 I/O 09/13/17 09/13/17 09/13/17 09/14/17 09/14/17 09/14/17 07:00 15:00 23:00 07:00 15:00 23:00 Intake Total 640 ml 480 ml Output Total 150 ml Balance 640 ml 330 ml Intake Oral 640 ml 480 ml Output Urine Total 150 ml # Voids 3 # Bowel Movements 0 0 Result Diagram: 09/14/17 0548 09/14/17 0548 Imaging Last Impressions Head CT 09/12/17 0000 Signed Impressions: Service Date/Time: Tuesday, September 12, 2017 21:41 - CONCLUSION: No bleed or other acute intracranial abnormality. Mild sinus disease. Avery Jonas MD Objective Remarks GENERAL: This is a well-nourished, well-developed patient, in no apparent distress. CARDIOVASCULAR: Regular rate and regular rhythm without murmurs, gallops, or rubs. RESPIRATORY: Clear to auscultation. Breath sounds equal bilaterally. No wheezes , rales, or rhonchi. GASTROINTESTINAL: Abdomen soft, non-tender, nondistended. Normal, active bowel sounds MUSCULOSKELETAL: Extremities without clubbing, cyanosis, or edema. NEURO: Alert & Oriented x4 to person, place, time, situation. Moves all ext x4 Medications and IVs Current Medications Sodium Chloride (NS Flush) 2 ml UNSCH PRN IVF FLUSH AFTER USING IV ACCESS; Start 09/12/17 at 21:00; Stop 09/12/17 at 22:20; Status DC Lidocaine HCl (Xylocaine-Mpf 1% Inj) 30 ml ONCE ONCE INFIL Last administered on 09/12/17 21:18; Start 09/12/17 at 21:00; Stop 09/12/17 at 21:01; Status DC Dextrose (D50w (Vial) Inj) 50 ml UNSCH PRN IV PUSH HYPOGLYCEMIA-SEE COMMENTS; Start 09/12/17 at 22:15 Glucagon (Glucagon Inj) 1 mg UNSCH PRN OTHER HYPOGLYCEMIA-SEE COMMENTS; Start 09/12/17 at 22:15 Insulin Aspart (NovoLOG SUPPLEMENTAL SCALE) 1 ACHS SLIDING SCALE SQ Last administered on 09/13/17 12:00; Start 09/13/17 at 08:00 Sodium Chloride 1,000 ml @ 100 mls/hr Q10H IV ; Start 09/12/17 at 23:00; Stop 09/12/17 at 23:11; Status DC Sodium Chloride (NS Flush) 2 ml UNSCH PRN IV FLUSH FLUSH AFTER USING IV ACCESS ; Start 09/12/17 at 22:15 Sodium Chloride (NS Flush) 2 ml BID IV FLUSH Last administered on 09/14/17 08 :19; Start 09/13/17 at 09:00 Ondansetron HCl (Zofran Inj) 4 mg Q6H PRN IVP NAUSEA OR VOMITING; Start at 22:15 Acetaminophen (Tylenol) 650 mg Q6H PRN PO FEVER/PAIN SCALE 1 TO 2 Last administered on 09/13/17 10:18; Start 09/12/17 at 22:15 Acetaminophen/ Hydrocodone Bitart (Aylett 5-325 Mg) 1 tab Q4H PRN PO PAIN SCALE 3 TO 5 Last administered on 09/14/17 00:04; Start 09/12/17 at 22:15 Acetaminophen/ Hydrocodone Bitart (Aylett 10-325 Mg) 1 tab Q4H PRN PO PAIN SCALE 6 TO 10 Last administered on 09/14/17 08:13; Start 09/12/17 at 22:15 Senna/Docusate Sodium (Luz Elena-Colace) 1 tab BID PO Last administered on 08:18; Start 09/13/17 at 09:00 Magnesium Hydroxide (Milk Of Magnesia Liq) 30 ml Q12H PRN PO Mild constipation ; Start 09/12/17 at 22:15 Sennosides (Senokot) 17.2 mg Q12H PRN PO Moderate constipation; Start at 22:15 Bisacodyl (Dulcolax Supp) 10 mg DAILY PRN RECTAL SEVERE CONSITIPATION; Start 09/12/17 at 22:15 Lactulose (Lactulose Liq) 30 ml DAILY PRN PO SEVERE CONSITIPATION; Start 09/12 at 22:15 Dextrose/Sodium Chloride 500 ml @ 500 mls/hr BOLUS ONCE IV ; Start 09/12/17 at 23:15; Stop 09/13/17 at 00:14; Status Cancel Dextrose/Sodium Chloride 500 ml @ 500 mls/hr Q1H ONCE IV Last administered on 09/13/17 00:37; Start 09/13/17 at 01:00; Stop 09/13/17 at 04:10; Status DC Amiodarone HCl 150 mg/Dextrose 103 ml @ 600 mls/hr Q11M ONCE IV Last administered on 09/13/17 05:08; Start 09/13/17 at 04:33; Stop 09/13/17 at 04 :43; Status DC Amiodarone HCl 450 mg/Dextrose 250 ml @ 33.33 mls/ hr Q7H31M PRN IV Per Protocol Last administered on 09/13/17 05:17; Start 09/13/17 at 04:43 Sodium Chloride 1,000 ml @ 84 mls/hr [id number] IV Last administered on 09:30; Start 09/13/17 at 09:30; Stop 09/13/17 at 21:24; Status DC Sodium Chloride 1,000 ml @ 100 mls/hr Q10H IV Last administered on 09/14/17 08:20; Start 09/13/17 at 11:22; Stop 09/18/17 at 11:21 Diphenhydramine HCl (Benadryl) 50 mg BANQUET CHEF PO ; Start 09/13/17 at 11:30; Stop 09/17/17 at 11:29 Diazepam (Valium) 10 mg BANQUET CHEF PO ; Start 09/13/17 at 11:30; Stop 09/17/17 at 11:29 Midazolam HCl (Versed Inj) 1 mg BANQUET CHEF IV PUSH ; Start 09/13/17 at 11:30; Stop 09/17/17 at 11:29 Aspirin (Ecotrin Ec) 81 mg DAILY PO Last administered on 09/14/17 08:18; Start 09/13/17 at 12:00 Carvedilol (Coreg) 3.125 mg Q12HR PO Last administered on 09/14/17 08:18; Start 09/13/17 at 12:00 A/P Problem List: (1) Near syncope ICD Code: R55 - Syncope and collapse (2) Fall ICD Code: W19.XXXA - Unspecified fall, initial encounter (3) Dizziness ICD Code: R42 - Dizziness and giddiness (4) Scalp laceration ICD Code: S01.01XA - Laceration without foreign body of scalp, initial encounter Status: Acute (5) Renal insufficiency ICD Code: N28.9 - Disorder of kidney and ureter, unspecified (6) Leukocytosis ICD Code: D72.829 - Elevated white blood cell count, unspecified (7) CHF (congestive heart failure) ICD Code: I50.9 - CHF (congestive heart failure) Status: Acute (8) DM (diabetes mellitus) ICD Code: E11.9 - Type 2 diabetes mellitus without complications Assessment and Plan A/P Fall secondary to Presyncope-complained of acute dizziness and presyncopal event , troponin negative. EKG with PVCs and lateral T wave inversions. Patient had an episode of ventricular tachycardia. Obtain echocardiogram from the office done 4 days ago. With head trauma, CT scan of the head unremarkable. Scalp laceration status post concha from the emergency department. Ventricular tachycardia-nonsustained- cardiology consult appreciated;started on Amiodarone drip- plan for cardiac cath today. Orthostatic hypotension- initial orthostatics positive- Caution with history of CHF. Patient also has history of chronic dizziness, on meclizine. Chronic systolic and diastolic CHF-Cath 08/14/16 s/p JOHN to RCA, noted to have Diastolic Dysfunction. Echo 01/24/15 w/ EF 40-45%. States recent Echo w/ Dr. Caruso w/ improved EF, will obtain records from outpatient. No evidence of fluid overload at this time. Resumed home medications. Leukocytosis: WBC 16.4. No obvious infectious etiology. improved. afebrile. Renal Insufficiency: Chronic. will monitor- continue with IV fluid- BMP tomorrow to ensure stability post-cardiac cath. DM: Sliding scale w/ Accu-Cheks. Hold Metformin. DVT Prophylaxis: SCD/Teds. Start physical therapy after cardiac catheterization. Discharge Planning pending cardiac cath/ cardiology recommendations and PT evaluation. Problem Qualifiers (1) Scalp laceration: Qualified Codes: S01.01XA - Laceration without foreign body of scalp, initial encounter Giselle Wen MD Sep 14, 2017 09:08
[2017-09-14] MEDS ORDERED: HEPARIN-NS/PF INJ 1,000 ML ONE (09:35)
[2017-09-14] MEDS ORDERED: HEPARIN SODIUM - IV 10,000 UNITS/10 ML VIAL ONE (09:35)
[2017-09-14] MEDS ORDERED: VERAPAMIL HCL 5 MG/2 ML VIAL ONE (09:35)
[2017-09-14] MEDS ORDERED: NITROGLYCERIN INJ 5 ML ONE (09:35)
[2017-09-14] MEDS ORDERED: MIDAZOLAM HCL 2 MG/2 ML VIAL ONE (10:10)
[2017-09-14] MEDS ORDERED: MISC INFORMATION XX ONE (11:00)
[2017-09-14] MEDS ORDERED: IOHEXOL 350 MG/ML 50 ML BTL (for Cath Lab) OTHER ONE (11:13)
--- NOTE | 2017-09-14 11:38 | MA ---
cc: TEO LLANES M.D. DATE 09/14/2017 PROCEDURE Left heart catheterization, selective coronary angiography, left ventriculography. PROCEDURE NOTES The patient was brought to the cardiac catheterization laboratory in a fasting state after having signed informed consent. The right radial region was prepped and draped as per policy and anesthetized with 1% lidocaine. Arterial access was obtained via the right radial artery and a 6-Citizen Of [place] sheath placed. Coronary arteriography was performed using a Marbury catheter. Left ventriculography was done using a multipurpose catheter. There were no apparent immediate complications. HEMODYNAMIC RESULTS Left ventricle 106 with an end-diastolic pressure of less than 10. Aorta 103/47 with a mean of 71. There was no significant transvalvular aortic gradient on pullback of the pigtail catheter. CORONARY ARTERIOGRAPHY The left main has up to 10% mid and distal disease. The left anterior descending may have a stent in its midportion. There is approximately 50% diffuse restenosis of this stent. The proximal LAD has minimal luminal irregularities. The distal LAD has a somewhat eccentric up to 40% stenosis. The LAD gives rise to small diagonals mainly arising from the distal vessel. A small diagonal has up to 50% ostial stenosis. There is a relatively small caliber ramus intermedius which has eccentric proximal disease up to 50-65% stenosis. The left circumflex is a fairly large vessel giving rise to small to medium-sized obtuse marginals. There is up to 25% very proximal stenosis in the left circumflex. The mid-left circumflex has minimal luminal irregularities. The right coronary artery is a medium-sized, dominant vessel demonstrating a stent at its ostium and another stent in its midportion. The stents are widely patent. The rest of the vessel has minimal luminal irregularities. LEFT VENTRICULOGRAPHY Hand contrast injection of the left ventricle reveals no definite segmental wall motion abnormalities. Ejection fraction is estimated at 60%. CONCLUSIONS 1. Widely patent ostial and mid right coronary artery stents placed a year ago. 2. Mild to moderate restenosis of what appears to be a mid LAD stent. 3. Moderate disease of a relatively small caliber ramus intermedius. 4. Normal left ventricular function with estimated ejection fraction of 60%. DISCUSSION The eccentric disease in the proximal ramus intermedius will be treated medically. The vessel is relatively small in diameter. MD SPARKLE Mendez/TEOFILO /11:02 AM /11:35 AM MTDKushal
[2017-09-14] MEDS: ACETAMINOPHEN 325 MG TAB PO PRN (16:56)
--- NOTE | 2017-09-14 17:39 | PD.WCN.NOT ---
Wound Consult Description: Received consult for wound management of sacrum from Doctor Dubon Communicated with: MAGALI Johnson [facility] and Call placed to Doctor Wen Recommendation: 1. Please consult surgery for possible I&D of R buttock. 2.Please cleanse bilateral buttock lesions with normal saline or wound cleanser and apply Maxorb extra AG just opened areas with drainage and cover with bordered gauze and change dressing every other day or PRN if saturated or dislodged.until seen by surgery for possible I &D.Please apply skin prep to periwound and to bilateral buttock and gluteal cleft before applying dressings. 3. Please place ultrasorb pad under patient for incontinence management, do not use thick cloth pads. Additional Information: Patient seen on [facility] for evaluation of wound management of sacrum. Patient was assisted with maximum assist to L side with the assistance of business writer and SUBMARINE CABLE EQUIPMENT TECHNICIAN to reveal bilateral buttock lesions. L inner buttock lesion presents with small opening that measures ~0,5cm x ~0.4cm x ~0.1cm that is draining moderate escoto/ sanguinous drainage with foul odor. Periwound is noted with induration that is fluctuance. R inner buttock lesion presents with 2 small openings that measures ~0.1cm x ~0.1cm and scant sero-sanguinous drainage that has a foul odor.Lesion is indurated and fluctuant.Periwound presents with hard induration and crepitus.Cleansed bilateral buttock lesions with normal saline and pat dry. Wound culture obtained from opened draining lesion on L inner buttock. Applied Maxorb extra AG just over opened draining areas and covered with bordered gauze. Skin prep was applied periwound, bilateral buttock and gluteal cleft before applying dressings. Amarilys Waite [facility] Sep 14, 2017 17:39
[2017-09-15] VITALS (16 sets, daily range): BP systolic 104–145; BP diastolic 54–77; PULSE 72–101; RESP 14–22; TEMP 97.8–98.8; O2SAT 96–99
[2017-09-15] MEDS: AMIODARONE INJ 450 MG in DEXTROSE 5% IN WATE(EXCEL) INJ 241 ML IV PRN ×2 (01:25)
[2017-09-15] MEDS: ACETAMINOPHEN/HYDROcodone 325 MG/10 MG TAB PO PRN (04:33)
[2017-09-15] MEDS: SODIUM CHLOR 0.9% 1000 ML INJ 1,000 ML IV SCH ×2 (04:35→21:14)
[2017-09-15 07:12] LABS: BICARBONATE 21.3 MEQ/L (21.0-32.0); POTASSIUM 3.9 MEQ/L (3.5-5.1)
[2017-09-15] MEDS: INSULIN ASPART SUPPLEMENTAL SCALE SQ SCH ×4 (08:00→21:00)
[2017-09-15] MEDS: SODIUM CHLORIDE 0.9% FLUSH 10 ML FLUSH IV FLUSH SCH ×2 (09:17→21:00)
[2017-09-15] MEDS: ASPIRIN EC 81 MG TABEC PO SCH (09:17)
[2017-09-15] MEDS: DOCUSATE SODIUM 50 MG/SENNA 8.6 MG TAB PO SCH ×2 (09:17→22:26)
[2017-09-15] MEDS: CARVEDILOL 3.125 MG TAB PO SCH ×2 (09:17→22:25)
[2017-09-15] MEDS: ACETAMINOPHEN/HYDROcodone 325 MG/5 MG TAB PO PRN ×2 (09:28→22:26)
--- NOTE | 2017-09-15 09:41 | HHI.PR ---
Subjective Remarks in no acute distress. but she says that ' she's not feeling good today'. she's weak and cold. no fever. seen with the RN at the bedside. Objective Vitals Vital Signs Date Time Temp Pulse Resp B/P (MAP) Pulse Ox O2 Delivery O2 Flow Rate FiO2 09/15/17 08:00 97.8 101 20 139/69 (92) 98 09/15/17 07:00 86 09/15/17 06:00 84 09/15/17 05:45 16 09/15/17 05:00 80 09/15/17 04:00 76 09/15/17 03:00 72 09/15/17 03:00 98.4 88 14 104/66 (79) 97 09/15/17 02:00 74 09/15/17 01:25 75 103/56 09/15/17 01:00 74 09/15/17 00:00 74 09/14/17 23:00 75 16 103/56 (72) 97 09/14/17 23:00 78 09/14/17 22:00 84 09/14/17 21:00 80 09/14/17 20:00 80 09/14/17 20:00 86 16 107/59 (75) 97 09/14/17 19:00 78 09/14/17 18:00 78 09/14/17 17:00 74 09/14/17 16:00 72 09/14/17 15:47 71 09/14/17 15:00 98.2 69 20 104/48 (66) 96 09/14/17 14:00 68 09/14/17 13:00 70 09/14/17 12:00 69 09/14/17 11:30 97.8 68 20 95/51 (66) 95 I/O 09/14/17 09/14/17 09/14/17 09/15/17 09/15/17 09/15/17 07:00 15:00 23:00 07:00 15:00 23:00 Intake Total 480 ml 480 ml 480 ml Output Total 150 ml 100 ml Balance 330 ml 480 ml 380 ml Intake Oral 480 ml 480 ml 480 ml Output Urine Total 150 ml 100 ml # Voids 2 2 # Bowel Movements 0 Result Diagram: 09/14/17 0548 09/15/17 0553 Imaging Last Impressions Head CT 09/12/17 0000 Signed Impressions: Service Date/Time: Tuesday, September 12, 2017 21:41 - CONCLUSION: No bleed or other acute intracranial abnormality. Mild sinus disease. Avery Jonas MD Objective Remarks GENERAL: This is a well-nourished, well-developed patient, in no apparent distress. CARDIOVASCULAR: Regular rate and regular rhythm without murmurs, gallops, or rubs. RESPIRATORY: Clear to auscultation. Breath sounds equal bilaterally. No wheezes , rales, or rhonchi. GASTROINTESTINAL: Abdomen soft, non-tender, nondistended. Normal, active bowel sounds MUSCULOSKELETAL: Extremities without clubbing, cyanosis, or edema. NEURO: Alert & Oriented x4 to person, place, time, situation. Moves all ext x4 skin; induration, tenderness and warmth over the right buttock Procedures cardiac cath. Medications and IVs Current Medications Sodium Chloride (NS Flush) 2 ml UNSCH PRN IVF FLUSH AFTER USING IV ACCESS; Start 09/12/17 at 21:00; Stop 09/12/17 at 22:20; Status DC Lidocaine HCl (Xylocaine-Mpf 1% Inj) 30 ml ONCE ONCE INFIL Last administered on 09/12/17 21:18; Start 09/12/17 at 21:00; Stop 09/12/17 at 21:01; Status DC Dextrose (D50w (Vial) Inj) 50 ml UNSCH PRN IV PUSH HYPOGLYCEMIA-SEE COMMENTS; Start 09/12/17 at 22:15 Glucagon (Glucagon Inj) 1 mg UNSCH PRN OTHER HYPOGLYCEMIA-SEE COMMENTS; Start 09/12/17 at 22:15 Insulin Aspart (NovoLOG SUPPLEMENTAL SCALE) 1 ACHS SLIDING SCALE SQ Last administered on 09/14/17 23:38; Start 09/13/17 at 08:00 Sodium Chloride 1,000 ml @ 100 mls/hr Q10H IV ; Start 09/12/17 at 23:00; Stop 09/12/17 at 23:11; Status DC Sodium Chloride (NS Flush) 2 ml UNSCH PRN IV FLUSH FLUSH AFTER USING IV ACCESS ; Start 09/12/17 at 22:15 Sodium Chloride (NS Flush) 2 ml BID IV FLUSH Last administered on 09/15/17 09 :17; Start 09/13/17 at 09:00 Ondansetron HCl (Zofran Inj) 4 mg Q6H PRN IVP NAUSEA OR VOMITING; Start at 22:15 Acetaminophen (Tylenol) 650 mg Q6H PRN PO FEVER/PAIN SCALE 1 TO 2 Last administered on 09/14/17 16:56; Start 09/12/17 at 22:15 Acetaminophen/ Hydrocodone Bitart ([place] 5-325 Mg) 1 tab Q4H PRN PO PAIN SCALE 3 TO 5 Last administered on 09/15/17 09:28; Start 09/12/17 at 22:15 Acetaminophen/ Hydrocodone Bitart ([place] 10-325 Mg) 1 tab Q4H PRN PO PAIN SCALE 6 TO 10 Last administered on 09/15/17 04:33; Start 09/12/17 at 22:15 Senna/Docusate Sodium (Luz Elena-Colace) 1 tab BID PO Last administered on 09:17; Start 09/13/17 at 09:00 Magnesium Hydroxide (Milk Of Magnesia Liq) 30 ml Q12H PRN PO Mild constipation ; Start 09/12/17 at 22:15 Sennosides (Senokot) 17.2 mg Q12H PRN PO Moderate constipation; Start at 22:15 Bisacodyl (Dulcolax Supp) 10 mg DAILY PRN RECTAL SEVERE CONSITIPATION; Start 09/12/17 at 22:15 Lactulose (Lactulose Liq) 30 ml DAILY PRN PO SEVERE CONSITIPATION; Start 09/12 at 22:15 Dextrose/Sodium Chloride 500 ml @ 500 mls/hr BOLUS ONCE IV ; Start 09/12/17 at 23:15; Stop 09/13/17 at 00:14; Status Cancel Dextrose/Sodium Chloride 500 ml @ 500 mls/hr Q1H ONCE IV Last administered on 09/13/17 00:37; Start 09/13/17 at 01:00; Stop 09/13/17 at 04:10; Status DC Amiodarone HCl 150 mg/Dextrose 103 ml @ 600 mls/hr Q11M ONCE IV Last administered on 09/13/17 05:08; Start 09/13/17 at 04:33; Stop 09/13/17 at 04 :43; Status DC Amiodarone HCl 450 mg/Dextrose 250 ml @ 33.33 mls/ hr Q7H31M PRN IV Per Protocol Last administered on 09/15/17 01:25; Start 09/13/17 at 04:43 Sodium Chloride 1,000 ml @ 84 mls/hr [id number] IV Last administered on 09:30; Start 09/13/17 at 09:30; Stop 09/13/17 at 21:24; Status DC Sodium Chloride 1,000 ml @ 100 mls/hr Q10H IV Last administered on 09/15/17 04:35; Start 09/13/17 at 11:22; Stop 09/18/17 at 11:21 Diphenhydramine HCl (Benadryl) 50 mg FERRIS WHEEL OPERATOR PO ; Start 09/13/17 at 11:30; Stop 09/17/17 at 11:29 Diazepam (Valium) 10 mg FERRIS WHEEL OPERATOR PO ; Start 09/13/17 at 11:30; Stop 09/17/17 at 11:29 Midazolam HCl (Versed Inj) 1 mg FERRIS WHEEL OPERATOR IV PUSH ; Start 09/13/17 at 11:30; Stop 09/17/17 at 11:29 Aspirin (Ecotrin Ec) 81 mg DAILY PO Last administered on 09/15/17 09:17; Start 09/13/17 at 12:00 Carvedilol (Coreg) 3.125 mg Q12HR PO Last administered on 09/15/17 09:17; Start 09/13/17 at 12:00 Heparin Sodium/ Sodium Chloride 1,000 ml @ As Directed STK-MED ONCE .ROUTE ; Start 09/14/17 at 09:35; Stop 09/14/17 at 09:36; Status DC Verapamil HCl (Isoptin Inj) 5 mg STK-MED ONCE .ROUTE Last administered on 09/14 09:55; Start 09/14/17 at 09:35; Stop 09/14/17 at 09:36; Status DC Heparin Sodium (Porcine) (Heparin Inj) 10,000 units STK-MED ONCE .ROUTE Last administered on 09/14/17 09:55; Start 09/14/17 at 09:35; Stop 09/14/17 at 09 :36; Status DC Nitroglycerin 5 ml @ As Directed STK-MED ONCE .ROUTE ; Start 09/14/17 at 09:35 ; Stop 09/14/17 at 09:36; Status DC Midazolam HCl (Versed Inj) 2 mg STK-MED ONCE .ROUTE Last administered on 10:29; Start 09/14/17 at 10:10; Stop 09/14/17 at 10:11; Status DC Fentanyl Citrate (fentaNYL INJ) 100 mcg STK-MED ONCE .ROUTE Last administered on 09/14/17 10:30; Start 09/14/17 at 10:29; Stop 09/14/17 at 10:30; Status DC Miscellaneous Information 1 ONCE ONCE XX ; Start 09/14/17 at 11:00; Stop at 11:38; Status DC Iohexol (OMNIPAQUE 350 INJ ([employer])) 50 ml STK-MED ONCE OTHER ; Start at 11:13; Stop 09/14/17 at 11:14; Status DC A/P Problem List: (1) Near syncope ICD Code: R55 - Syncope and collapse (2) Fall ICD Code: W19.XXXA - Unspecified fall, initial encounter (3) Dizziness ICD Code: R42 - Dizziness and giddiness (4) Scalp laceration ICD Code: S01.01XA - Laceration without foreign body of scalp, initial encounter Status: Acute (5) Renal insufficiency ICD Code: N28.9 - Disorder of kidney and ureter, unspecified (6) Leukocytosis ICD Code: D72.829 - Elevated white blood cell count, unspecified (7) CHF (congestive heart failure) ICD Code: I50.9 - CHF (congestive heart failure) Status: Acute (8) DM (diabetes mellitus) ICD Code: E11.9 - Type 2 diabetes mellitus without complications Assessment and Plan A/P Fall secondary to Presyncope-complained of acute dizziness and presyncopal event , troponin negative. EKG with PVCs and lateral T wave inversions. Patient had an episode of ventricular tachycardia. With head trauma, CT scan of the head unremarkable. Scalp laceration status post concha from the emergency department. Ventricular tachycardia-nonsustained- cardiology consult appreciated;started on Amiodarone drip- s/p cardiac cath with; 1. Widely patent ostial and mid right coronary artery stents placed a year ago. 2. Mild to moderate restenosis of what appears to be a mid LAD stent. 3. Moderate disease of a relatively small caliber ramus intermedius. 4. Normal left ventricular function with estimated ejection fraction of 60%. continue medical treatment. Orthostatic hypotension- initial orthostatics positive- Caution with history of CHF. Patient also has history of chronic dizziness, on meclizine. wound/ abscess of the right buttock- wound culture pending; will start IV antibiotics and consult general surgery. previously d/w the roughener. Chronic systolic and diastolic CHF-Cath 08/14/16 s/p JOHN to RCA, noted to have Diastolic Dysfunction. Echo 01/24/15 w/ EF 40-45%. States recent Echo w/ Dr. Caruso w/ improved EF, will obtain records from outpatient. No evidence of fluid overload at this time. Resumed home medications. Renal Insufficiency: Chronic. will monitor- continue with gentle IV fluid- DM: Sliding scale w/ Accu-Cheks. Hold Metformin. DVT Prophylaxis: SCD/Teds. continue PT. Discharge Planning not ready for discharge yet. will consult case management for dc planning to rehab. Problem Qualifiers (1) Scalp laceration: Qualified Codes: S01.01XA - Laceration without foreign body of scalp, initial encounter Giselle Wen MD Sep 15, 2017 09:41
[2017-09-15] MEDS ORDERED: Vancomycin Consult Pharmacy 1 EA OTHER SCH (09:45)
[2017-09-15] MEDS ORDERED: VANCOMYCIN INJ 1,000 MG in SODIUM CHLOR 0.9% 250 ML INJ 250 ML IV ONE (09:45)
[2017-09-15] MEDS: AMPICILLIN-SULBACTAM INJ 3 GM in SODIUM CHLORIDE 0.9% INJ 100 ML IV SCH ×3 (11:00→23:30)
--- NOTE | 2017-09-15 11:27 | PD.CONS ---
cc: Munir Fuller MD [facility] Service General Surgery Consult Requested By Dr. Wen Reason for Consult RIGHT buttocks abscess Primary Care Physician Juani Avitia M.D. History of Present Illness This is a 66-year-old female with a past medical history of hypertension, coronary artery disease, congestive heart failure with an ejection fraction of 40%, chronic dizziness and type 2 diabetes mellitus. The patient presented to the emergency department after a syncopal episode at home and hit her head. She denies loss of consciousness. The patient had several episodes of syncope at home. Cardiology was consulted and a cardiac catheterization done which shows widely patent ostial and mid right coronary artery stents and moderate disease of a relatively small caliber ramus intermedius. She will be treated medically. She currently takes Plavix and aspirin which were last taken . She is unsure when she started having drainage from her buttocks abscess. Her daughter is present who states this is an on and off problem for her for quite some time. The patient has never been evaluated by a surgeon for this issues. The patient has most recently had home health care coming to her house for wound care due to drainage from her wounds. Wound Care Nurse saw patient yesterday evening and suggested a General Surgery consultation. Review of Systems Constitutional: DENIES: Fever, Chills, Change in appetite Endocrine: DENIES: Polydipsia, Polyuria, Polyphagia Eyes: DENIES: Diplopia Ears, nose, mouth, throat: DENIES: Hearing loss Respiratory: DENIES: Cough, Shortness of breath Cardiovascular: COMPLAINS OF: Syncope, DENIES: Palpitations Gastrointestinal: DENIES: Abdominal pain, Nausea, Vomiting Genitourinary: DENIES: Urinary frequency Musculoskeletal: DENIES: Muscle aches Integumentary: DENIES: Abnormal pigmentation Hematologic/lymphatic: DENIES: Bruising Neurologic: DENIES: Headache, Localized weakness Psychiatric: DENIES: Mood changes, Depression, Hallucinations Past Family Social History Past Medical History Hypertension Coronary artery disease CHF Syncopal episodes Diabetes mellitus type 2 Past Surgical History Cardiac stent placement on Plavix and aspirin 2 Laparoscopic cholecystectomy Tonsillectomy Parathyroidectomy Allergies: Coded Allergies: procaine (Unverified Allergy, Severe, 06/09/17) Active Ordered Medications Current Medications Medications (Trade) Dose Ordered Sig/Josefina Route Start Time Stop Time Status Last Admin (D50w (Vial) Inj) 50 ml UNSCH PRN IV PUSH 09/12/17 22:15 (Glucagon Inj) 1 mg UNSCH PRN OTHER 09/12/17 22:15 (NovoLOG SUPPLEMENTAL SCALE) 1 ACHS SLIDING SCALE SQ 09/13/17 08:00 09/14/17 23:38 (NS Flush) 2 ml UNSCH PRN IV FLUSH 09/12/17 22:15 (NS Flush) 2 ml BID IV FLUSH 09/13/17 09:00 09/15/17 09:17 (Zofran Inj) 4 mg Q6H PRN IVP 09/12/17 22:15 (Tylenol) 650 mg Q6H PRN PO 09/12/17 22:15 09/14/17 16:56 ([place] 5-325 Mg) 1 tab Q4H PRN PO 09/12/17 22:15 09/15/17 09:28 ([place] 10-325 Mg) 1 tab Q4H PRN PO 09/12/17 22:15 09/15/17 04:33 (Luz Elena-Colace) 1 tab BID PO 09/13/17 09:00 09/15/17 09:17 (Milk Of Magnesia Liq) 30 ml Q12H PRN PO 09/12/17 22:15 (Senokot) 17.2 mg Q12H PRN PO 09/12/17 22:15 (Dulcolax Supp) 10 mg DAILY PRN RECTAL 09/12/17 22:15 (Lactulose Liq) 30 ml DAILY PRN PO 09/12/17 22:15 Amiodarone HCl 450 mg/Dextrose 250 ml @ 33.33 mls/ hr Q7H31M PRN IV 09/13/17 04:43 09/15/17 01:25 Sodium Chloride 1,000 ml @ 60 mls/hr H90Q97H IV 09/13/17 11:22 09/18/17 11:21 09/15/17 04:35 (Benadryl) 50 mg SKIN PASS OPERATOR PO 09/13/17 11:30 09/17/17 11:29 (Valium) 10 mg SKIN PASS OPERATOR PO 09/13/17 11:30 09/17/17 11:29 (Versed Inj) 1 mg SKIN PASS OPERATOR IV PUSH 09/13/17 11:30 09/17/17 11:29 (Ecotrin Ec) 81 mg DAILY PO 09/13/17 12:00 09/15/17 09:17 (Coreg) 3.125 mg Q12HR PO 09/13/17 12:00 09/15/17 09:17 Pharmacy Profile Note 0 ml @ 0 mls/hr UNSCH OTHER 09/15/17 09:45 Ampicillin Sodium/ Sulbactam Sodium 3 gm/Sodium Chloride 100 ml @ 200 mls/hr Q6H IV 09/15/17 11:00 Vancomycin HCl 1000 mg/Sodium Chloride 250 ml @ 250 mls/hr Q24H IV 09/16/17 11:00 Miscellaneous Information SPECIFIC LAB TO BE HAZEL... ONCE ONCE .XX 09/18/17 10:45 09/18/17 10:46 Family History Noncontributory Social History Denies tobacco use Denies EtOH use Denies illicit drug use Physical Exam Vital Signs Vital Signs Date Time Temp Pulse Resp B/P (MAP) Pulse Ox O2 Delivery O2 Flow Rate FiO2 09/15/17 08:00 97.8 101 20 139/69 (92) 98 09/15/17 07:00 86 09/15/17 06:00 84 09/15/17 05:45 16 09/15/17 05:00 80 09/15/17 04:00 76 09/15/17 03:00 72 09/15/17 03:00 98.4 88 14 104/66 (79) 97 09/15/17 02:00 74 09/15/17 01:25 75 103/56 09/15/17 01:00 74 09/15/17 00:00 74 09/14/17 23:00 75 16 103/56 (72) 97 09/14/17 23:00 78 09/14/17 22:00 84 09/14/17 21:00 80 09/14/17 20:00 80 09/14/17 20:00 86 16 107/59 (75) 97 09/14/17 19:00 78 09/14/17 18:00 78 09/14/17 17:00 74 09/14/17 16:00 72 09/14/17 15:47 71 09/14/17 15:00 98.2 69 20 104/48 (66) 96 09/14/17 14:00 68 09/14/17 13:00 70 09/14/17 12:00 69 09/14/17 11:30 97.8 68 20 95/51 (66) 95 Physical Exam GENERAL: A 66-year-old female resting in bed in no acute distress. SKIN: Warm and dry. Buttocks: dark malodorous drainage from perirectal fistula ; indurated HEAD: Atraumatic. Normocephalic. EYES: Pupils equal and round. No scleral icterus. No injection or drainage. ENT: No nasal bleeding or discharge. Mucous membranes pink and moist. NECK: Trachea midline. CARDIOVASCULAR: Regular rate and rhythm. RESPIRATORY: No accessory muscle use. Clear to auscultation. Breath sounds equal bilaterally. GASTROINTESTINAL: Abdomen soft, non-tender, nondistended. MUSCULOSKELETAL: Extremities without clubbing, cyanosis, or edema. No obvious deformities. NEUROLOGICAL: Awake and alert. No obvious cranial nerve deficits. Motor grossly within normal limits. Five out of 5 muscle strength in the arms and legs. Normal speech. PSYCHIATRIC: Appropriate mood and affect; insight and judgment normal. 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 Wen Discussed Condition With Dr. Jonny Pacheco Attending Statement The exam, history, and the medical decision-making described in the above note were completed with the assistance of the mid-level provider. I reviewed and agree with the findings presented. I attest that I had a [id number] encounter with the patient on the same day, and personally performed and documented my assessment and findings in the medical record.The exam, history, and the medical decision-making described in the above note were completed with the assistance of the mid-level provider. I reviewed and agree with the findings presented. I attest that I had a [id number] encounter with the patient on the same day, and personally performed and documented my assessment and findings in the medical record. The patient has an acute vs. chronic perirectal fistulae with no appreciable abscess of the area on exam. No acute surgical intervention needed at this time. recommend colorectal evaluation non-urgently either as inpatient or even outpatient. continue to treat constipation Marianela Keith Sep 15, 2017 11:27 Munir Fuller MD Sep 15, 2017 14:30
--- NOTE | 2017-09-15 17:06 | MB ---
cc: GEOFFREY BENAVIDES M.D. DATE OF CONSULTATION 09/15/17 REASON FOR CONSULTATION Syncopal episode, wide complex tachyarrhythmia. HISTORY OF PRESENT ILLNESS Mrs. Pacheco is a 66-year-old female with severe high blood pressure, coronary artery disease, history of congestive heart failure, diabetes mellitus, previous syncopal episode who was admitted due to new syncopal episode. She was found with episode of self-limited ventricular tachycardia. She refers she completely collapsed and hit her head on the vanity. She received seven stitches. During hospitalization, was cathed by Dr. Gonsalves that indicated there was no significant occlusion and normal ejection fraction. I was consulted for further evaluation and management. The chart was reviewed. The patient was evaluated. ALLERGIES PROCAINE. SOCIAL HISTORY Negative for smoking and drinking. FAMILY HISTORY Noncontributory to her current medical condition. MEDICATIONS Currently on 1. Amiodarone IV. 2. Ampicillin 3. Sulbactam. 4. Vancomycin 5. Paxton. 6. Aspirin. 7. Coreg 3.125 mg twice a day. 8. Valium p.r.n. 9. Reglan. REVIEW OF SYSTEMS She refers feeling better, no dizziness or syncope, but she has some back pain. PHYSICAL EXAMINATION GENERAL: Alert, fully oriented. VITAL SIGNS: Her blood pressure is 145/77, pulse 88, respiratory rate 18. LUNGS: Ventilated. CARDIOVASCULAR: S1-S2, no gallop. No murmur. ABDOMEN: Obese. No mass. No bruit. EXTREMITIES: No edema. RECTAL: She has a perianal abscess. CARDIOLOGY STUDIES Electrocardiogram indicates sinus rhythm with frequent PACs, some incomplete right bundle branch block, diffuse ST changes. LABORATORY DATA Hemoglobin is 10.7, white blood cell 11.5, potassium 3.9, creatinine 1.56. ASSESSMENT AND RECOMMENDATIONS Mrs. Pacheco currently is stable. She is on antibiotic for sepsis and perianal abscess. She has a history of ___ hypertension. Ejection fraction is normal. There is some episode of non-sustained ventricular tachycardia and she has recurrent PVCs. At this point, I am going to discontinue the Amiodarone. Continue on the Coreg. If necessary, may be switched to metoprolol. Apparently, the patient is scheduled for abscess drainage in the morning. Okay to continue the surgery. When the patient is stable, she may need an electrophysiology study for arrhythmia evaluation. Case discussed with her. I will follow her during hospitalization. MD QUE Velasco/ /3:46 PM /5:01 PM
--- NOTE | 2017-09-15 18:28 | MB ---
cc: MARCY VANG GLENN H. M.D. TOLLAND,AMRIT ARIZMENDI M.D., MD DATE OF CONSULTATION 09/15/2017 CHIEF COMPLAINT Anal pain. HISTORY OF PRESENT ILLNESS This patient was admitted to the hospital for some sort of cardiac arrhythmia and underwent cardiac cath which apparently was clear according to the nursing staff. Nevertheless, she had stool draining from the anal region and Dr. Marcy Vang was asked to see her. 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 The patient says that she developed some bedsores when she was in the hospital last in June at [facility] but she is moving her bowels regularly and this just came up. PAST MEDICAL HISTORY, SOCIAL HISTORY AND FAMILY HISTORY Otherwise negative. REVIEW OF SYSTEMS Otherwise negative. She says that the pain started about a week ago. PHYSICAL EXAMINATION GENERAL: Well-developed, obese female in no acute distress. SKIN: Warm and dry. HEENT: Extraocular muscles intact. NECK: Supple. ABDOMEN: Soft and nontender. No masses. RECTAL: Inspection reveals bilateral induration in the ischiorectal areas. On the left side she has an apparent [id number] with stool draining. Digital rectal exam was not done. Dr. Vang has already done that and I do not need to repeat it at this time, I will do it under anesthesia. IMPRESSION Apparent bilateral ischiorectal abscesses with left-sided [id number]. PLAN Recommend exam under anesthesia and incision and drainage of bilateral ischiorectal abscesses and possible posterior anal space abscess with [id number]. I will schedule her for tomorrow morning for this exam and fistulotomy. MD RUY Leal/RADHA /2:40 PM /6:20 PM
[2017-09-16] VITALS (27 sets, daily range): BP systolic 81–114; BP diastolic 42–52; PULSE 72–96; RESP 16–20; TEMP 98.3–99.1; O2SAT 94–99
[2017-09-16] MEDS: AMPICILLIN-SULBACTAM INJ 3 GM in SODIUM CHLORIDE 0.9% INJ 100 ML IV SCH (05:00)
[2017-09-16] MEDS: ACETAMINOPHEN/HYDROcodone 325 MG/5 MG TAB PO PRN ×2 (05:14→23:31)
[2017-09-16] MEDS ORDERED: LIDOCAINE 0.5%/EPINEPHrine 1:200,000 SOLN 50 ML VIAL ONE (06:05)
[2017-09-16] MEDS ORDERED: DO NOT ADM ANY ANTICOAGULANT DRUGS PRN (07:37)
--- NOTE | 2017-09-16 07:50 | PD.OP ---
cc: Munir Fuller MD; Mono Caruso MD; Giselle Wen MD; Maikel Gonsalves MD Operative Report Date of Surgery: Sep 16, 2017 Preoperative Diagnosis: (1) Ischiorectal abscess and fistula Postoperative Diagnosis: (1) Ischiorectal abscess and fistula Procedure: Bilateral drainage of Ischiorectal abscess and fistulotomy Anesthesia: MAC and Local Surgeon: Avery Ozuna Wood Patternmaker(s): N/A Operation and Findings: Bilateral Ischiorectal abscesses and bilateral fistula in ano- I&D and fistulotomy Avery Ozuna MD Sep 16, 2017 07:50
[2017-09-16] MEDS ORDERED: DIMETHICONE/OXYBENZONE/PADMIATE LIP BALM 4.25 GM TOPICAL ONE (07:55)
[2017-09-16] MEDS: INSULIN ASPART SUPPLEMENTAL SCALE SQ SCH ×4 (08:00→21:00)
--- NOTE | 2017-09-16 08:08 | HHI.PR ---
Subjective . I&D bilateral Ischiorectal abscess and fistula done this AM Assessment/Plan . Bilat Ischiorectal abscess and fistula drained. Must have warm water sitz baths TID and after BMs Remove guaze 4x4 packing in AM and D/C anytime after. I stopped Unasyn and Vanco- Switched to oral Cipro/Flagyl. Only needed for 5 days. Needs F/U appt in my office next week. Dr Garcia will see patient in AM. Avery Ozuna MD Sep 16, 2017 08:08
[2017-09-16] MEDS ORDERED: *morphine SULFATE 8 MG/ML PERIprocedure ONLY ONE (08:23)
[2017-09-16] MEDS: SODIUM CHLOR 0.9% 1000 ML INJ 1,000 ML IV SCH ×2 (08:26→11:35)
--- NOTE | 2017-09-16 09:14 | MP ---
cc: [facility] ANDEW TOLLAND,AMRIT ARIZMENDI M.D., MD, ALAN S. M.D. 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 PROCEDURE Incision and drainage of bilateral ischiorectal abscesses with bilateral fistulotomy. SURGEON Dr. Ozuna ESTIMATED BLOOD LOSS Minimal OPERATIVE FINDINGS This patient was admitted to the hospital about four days ago with weakness and leukocytosis and she has had a previous cardiac history and underwent a cardiac workup including cardiac catheterization. Nothing untoward was found and she then began complaining of anal pain. This was investigated and Dr. Munir Fuller was consulted for evaluation. Apparently the patient has had pain for about a week or so and became progressively weaker with it and Dr. Fuller asked me to see the patient. On evaluation, she had induration bilaterally over each buttocks consistent with bilateral ischiorectal abscess. On the left side, she had an obvious fistula in ano. At surgery, digital rectal exam was normal other than a large amount of black diarrhea oozing out of the rectum. Other than that, she had bilateral induration consistent with bilateral ischiorectal abscesses with a fistula in ano both on the right anterior and left anterior side both of them tracking to the midline anteriorly at the dentate line. Bilateral fistulotomies were done and incision and drainage of these ischiorectal abscesses. This appears to have originated on the right side and became a horseshoe abscess anteriorly rather than posteriorly as is the norm. This probably originated from this anterior internal opening and developed both the right and left lateral ischiorectal abscesses. The right ischiorectal abscess was larger. There was no necrotic tissue present. It was a very clean and drainage and fistulotomy was done. OPERATIVE TECHNIQUE The patient was placed on table in the left lateral position and given monitored anesthesia care and the anal canal was injected with 1% Xylocaine with epinephrine using 50 cc. Once this was done, the Bethea bivalve retractor was inserted into the anal canal and our attention was turned to the left external opening of the anterior fistula in ano and the probe tracked directly to the midline anteriorly consistent with her internal opening. Fistulotomy and drainage was done of that left ischiorectal abscess and then the right anterior external opening was identified and the fistula probe was placed in that and fistulotomy was done also opening the right ischiorectal fossa. There was no pus present anymore since it was self drained, but it was quite indurated and it was fully unroofed and cleaned. As I said, there was large amount of liquid diarrheal black stool from the rectum and anal canal. Hemostasis was maintained throughout with electrocautery and the wound was coated with Monsel's solution and packed loosely with three 4x4 gauzes and an ABD pad. Sponge, needle and instrument counts were poor as correct. Estimated blood loss was minimal. The patient tolerated the procedure well and left the operating room in good condition. MD RUY Leal/KOFI /7:58 AM /9:10 AM
[2017-09-16] MEDS: CARVEDILOL 3.125 MG TAB PO SCH (09:56)
[2017-09-16] MEDS: ASPIRIN EC 81 MG TABEC PO SCH (09:57)
[2017-09-16] MEDS: metroNIDAZOLE 500 MG TAB PO SCH ×2 (09:57→16:21)
[2017-09-16] MEDS: CIPROFLOXACIN 500 MG TAB PO SCH ×2 (09:57→21:00)
[2017-09-16] MEDS: SODIUM CHLORIDE 0.9% FLUSH 10 ML FLUSH IV FLUSH SCH ×2 (09:58→21:00)
--- NOTE | 2017-09-16 10:48 | HHI.PR ---
Subjective Remarks says that feels better today. no fever. no chest pain or sob although the BP is on low side. no other complaints. Objective Vitals Vital Signs Date Time Temp Pulse Resp B/P (MAP) Pulse Ox O2 Delivery O2 Flow Rate FiO2 09/16/17 09:46 98.5 72 18 81/42 (55) 94 09/16/17 08:15 80 21 102/53 (69) 100 Nasal Cannula 2 09/16/17 08:00 77 21 104/53 (70) 100 Nasal Cannula 2 09/16/17 07:45 74 21 103/51 (68) 100 Nasal Cannula 2 09/16/17 07:37 98.8 72 21 80/38 (52) 100 Nasal Cannula 2 09/16/17 06:30 16 09/16/17 06:00 86 09/16/17 05:00 90 09/16/17 04:00 84 09/16/17 03:30 99.0 81 20 109/51 (70) 97 09/16/17 03:00 86 09/16/17 02:00 90 09/16/17 01:00 82 09/16/17 00:00 99.1 88 16 92/49 (63) 96 09/16/17 00:00 88 09/15/17 23:00 90 09/15/17 22:00 88 09/15/17 21:00 88 09/15/17 20:00 98.8 84 22 115/54 (74) 99 09/15/17 20:00 96 09/15/17 19:00 94 09/15/17 13:00 97.9 88 20 145/77 (99) 96 09/15/17 13:00 94 I/O 09/15/17 09/15/17 09/15/17 09/16/17 09/16/17 09/16/17 07:00 15:00 23:00 07:00 15:00 23:00 Intake Total 480 ml 1570 ml 120 ml 500 ml Output Total 100 ml 20 ml Balance 380 ml 1570 ml 120 ml 480 ml Intake Oral 480 ml 120 ml 120 ml IV Total 1450 ml 500 ml Output Urine Total 100 ml Estimated Blood Loss 20 ml # Voids 2 4 3 # Bowel Movements 1 3 Result Diagram: 09/14/17 0548 09/15/17 0553 Imaging Last Impressions Head CT 09/12/17 0000 Signed Impressions: Service Date/Time: Tuesday, September 12, 2017 21:41 - CONCLUSION: No bleed or other acute intracranial abnormality. Mild sinus disease. Avery Jonas MD Objective Remarks GENERAL: This is a well-nourished, well-developed patient, in no apparent distress. CARDIOVASCULAR: Regular rate and regular rhythm without murmurs, gallops, or rubs. RESPIRATORY: Clear to auscultation. Breath sounds equal bilaterally. No wheezes , rales, or rhonchi. GASTROINTESTINAL: Abdomen soft, non-tender, nondistended. Normal, active bowel sounds MUSCULOSKELETAL: Extremities without clubbing, cyanosis, or edema. NEURO: Alert & Oriented x4 to person, place, time, situation. Moves all ext x4 skin; induration, tenderness and warmth over the right buttock Procedures cardiac cath. Incision and drainage of bilateral ischiorectal abscesses with bilateral fistulotomy. Medications and IVs Current Medications Sodium Chloride (NS Flush) 2 ml UNSCH PRN IVF FLUSH AFTER USING IV ACCESS; Start 09/12/17 at 21:00; Stop 09/12/17 at 22:20; Status DC Lidocaine HCl (Xylocaine-Mpf 1% Inj) 30 ml ONCE ONCE INFIL Last administered on 09/12/17 21:18; Start 09/12/17 at 21:00; Stop 09/12/17 at 21:01; Status DC Dextrose (D50w (Vial) Inj) 50 ml UNSCH PRN IV PUSH HYPOGLYCEMIA-SEE COMMENTS; Start 09/12/17 at 22:15 Glucagon (Glucagon Inj) 1 mg UNSCH PRN OTHER HYPOGLYCEMIA-SEE COMMENTS; Start 09/12/17 at 22:15 Insulin Aspart (NovoLOG SUPPLEMENTAL SCALE) 1 ACHS SLIDING SCALE SQ Last administered on 09/14/17 23:38; Start 09/13/17 at 08:00 Sodium Chloride 1,000 ml @ 100 mls/hr Q10H IV ; Start 09/12/17 at 23:00; Stop 09/12/17 at 23:11; Status DC Sodium Chloride (NS Flush) 2 ml UNSCH PRN IV FLUSH FLUSH AFTER USING IV ACCESS ; Start 09/12/17 at 22:15 Sodium Chloride (NS Flush) 2 ml BID IV FLUSH Last administered on 09/16/17 09 :58; Start 09/13/17 at 09:00 Ondansetron HCl (Zofran Inj) 4 mg Q6H PRN IVP NAUSEA OR VOMITING; Start at 22:15 Acetaminophen (Tylenol) 650 mg Q6H PRN PO FEVER/PAIN SCALE 1 TO 2 Last administered on 09/14/17 16:56; Start 09/12/17 at 22:15 Acetaminophen/ Hydrocodone Bitart ([place] 5-325 Mg) 1 tab Q4H PRN PO PAIN SCALE 3 TO 5 Last administered on 09/16/17 05:14; Start 09/12/17 at 22:15 Acetaminophen/ Hydrocodone Bitart ([place] 10-325 Mg) 1 tab Q4H PRN PO PAIN SCALE 6 TO 10 Last administered on 09/15/17 04:33; Start 09/12/17 at 22:15 Senna/Docusate Sodium (Luz Elena-Colace) 1 tab BID PO Last administered on 22:26; Start 09/13/17 at 09:00; Stop 09/16/17 at 07:34; Status DC Magnesium Hydroxide (Milk Of Magnesia Liq) 30 ml Q12H PRN PO Mild constipation ; Start 09/12/17 at 22:15; Stop 09/16/17 at 07:34; Status DC Sennosides (Senokot) 17.2 mg Q12H PRN PO Moderate constipation; Start at 22:15; Stop 09/16/17 at 07:34; Status DC Bisacodyl (Dulcolax Supp) 10 mg DAILY PRN RECTAL SEVERE CONSITIPATION; Start 09/12/17 at 22:15; Stop 09/16/17 at 07:34; Status DC Lactulose (Lactulose Liq) 30 ml DAILY PRN PO SEVERE CONSITIPATION; Start 09/12 at 22:15; Stop 09/16/17 at 07:34; Status DC Dextrose/Sodium Chloride 500 ml @ 500 mls/hr BOLUS ONCE IV ; Start 09/12/17 at 23:15; Stop 09/13/17 at 00:14; Status Cancel Dextrose/Sodium Chloride 500 ml @ 500 mls/hr Q1H ONCE IV Last administered on 09/13/17 00:37; Start 09/13/17 at 01:00; Stop 09/13/17 at 04:10; Status DC Amiodarone HCl 150 mg/Dextrose 103 ml @ 600 mls/hr Q11M ONCE IV Last administered on 09/13/17 05:08; Start 09/13/17 at 04:33; Stop 09/13/17 at 04 :43; Status DC Amiodarone HCl 450 mg/Dextrose 250 ml @ 33.33 mls/ hr Q7H31M PRN IV Per Protocol Last administered on 09/15/17 01:25; Start 09/13/17 at 04:43; Stop 09/15/17 at 15:39; Status DC Sodium Chloride 1,000 ml @ 84 mls/hr [id number] IV Last administered on 09:30; Start 09/13/17 at 09:30; Stop 09/13/17 at 21:24; Status DC Sodium Chloride 1,000 ml @ 60 mls/hr [id number] IV Last administered on 21:14; Start 09/13/17 at 11:22; Stop 09/18/17 at 11:21 Diphenhydramine HCl (Benadryl) 50 mg GRAIN BUYER PO ; Start 09/13/17 at 11:30; Stop 09/17/17 at 11:29 Diazepam (Valium) 10 mg GRAIN BUYER PO ; Start 09/13/17 at 11:30; Stop 09/17/17 at 11:29 Midazolam HCl (Versed Inj) 1 mg GRAIN BUYER IV PUSH ; Start 09/13/17 at 11:30; Stop 09/17/17 at 11:29 Aspirin (Ecotrin Ec) 81 mg DAILY PO Last administered on 09/16/17 09:57; Start 09/13/17 at 12:00 Carvedilol (Coreg) 3.125 mg Q12HR PO Last administered on 09/15/17 22:25; Start 09/13/17 at 12:00 Heparin Sodium/ Sodium Chloride 1,000 ml @ As Directed STK-MED ONCE .ROUTE ; Start 09/14/17 at 09:35; Stop 09/14/17 at 09:36; Status DC Verapamil HCl (Isoptin Inj) 5 mg STK-MED ONCE .ROUTE Last administered on 09/14 09:55; Start 09/14/17 at 09:35; Stop 09/14/17 at 09:36; Status DC Heparin Sodium (Porcine) (Heparin Inj) 10,000 units STK-MED ONCE .ROUTE Last administered on 09/14/17 09:55; Start 09/14/17 at 09:35; Stop 09/14/17 at 09 :36; Status DC Nitroglycerin 5 ml @ As Directed STK-MED ONCE .ROUTE ; Start 09/14/17 at 09:35 ; Stop 09/14/17 at 09:36; Status DC Midazolam HCl (Versed Inj) 2 mg STK-MED ONCE .ROUTE Last administered on 10:29; Start 09/14/17 at 10:10; Stop 09/14/17 at 10:11; Status DC Fentanyl Citrate (fentaNYL INJ) 100 mcg STK-MED ONCE .ROUTE Last administered on 09/14/17 10:30; Start 09/14/17 at 10:29; Stop 09/14/17 at 10:30; Status DC Miscellaneous Information 1 ONCE ONCE XX ; Start 09/14/17 at 11:00; Stop at 11:38; Status DC Iohexol (OMNIPAQUE 350 INJ (Screen Cutter And Trimmer)) 50 ml STK-MED ONCE OTHER ; Start at 11:13; Stop 09/14/17 at 11:14; Status DC Vancomycin HCl 1000 mg/Sodium Chloride 250 ml @ 250 mls/hr ONCE ONCE IV Last administered on 09/15/17 10:55; Start 09/15/17 at 09:45; Stop 09/15/17 at 10 :44; Status DC Pharmacy Profile Note 0 ml @ 0 mls/hr UNSCH OTHER ; Start 09/15/17 at 09:45; Stop 09/16/17 at 07:32; Status DC Ampicillin Sodium/ Sulbactam Sodium 3 gm/Sodium Chloride 100 ml @ 200 mls/hr Q6H IV Last administered on 09/16/17 05:00; Start 09/15/17 at 11:00; Stop 09/16/17 at 07:40; Status DC Vancomycin HCl 1000 mg/Sodium Chloride 250 ml @ 250 mls/hr Q24H IV ; Start at 11:00; Stop 09/16/17 at 11:00; Status DC Miscellaneous Information SPECIFIC LAB TO BE HAZEL... ONCE ONCE .XX ; Start at 10:45; Stop 09/18/17 at 10:46 Lidocaine/ Epinephrine (Xylocaine-Epi 0.5%-1:200,000 Inj) 50 ml STK-MED ONCE .ROUTE ; Start 09/16/17 at 06:05; Stop 09/16/17 at 06:06; Status DC Metronidazole (Flagyl) 500 mg Q8H PO Last administered on 09/16/17 09:57; Start 09/16/17 at 09:00 Ciprofloxacin (Cipro) 500 mg Q12HR PO Last administered on 09/16/17 09:57; Start 09/16/17 at 09:00 Oxybenzone/ Padimate O/ Dimethicone (Blistex Lip [place]) 4.25 applic STK-MED ONCE TOPICAL ; Start 09/16/17 at 07:55; Stop 09/16/17 at 07:56; Status DC Morphine Sulfate (*morphine INJ PERIprocedure ONLY) 8 mg STK-MED ONCE .ROUTE Last administered on 09/16/17 08:23; Start 09/16/17 at 08:23; Stop 09/16/17 at 08:24; Status DC Miscellaneous Information ALL NURSING DEPARTME... UNSCH PRN .XX SEE LABEL COMMENTS; Start 09/16/17 at 07:37; Stop 09/17/17 at 07:36 A/P Problem List: (1) Near syncope ICD Code: R55 - Syncope and collapse (2) Fall ICD Code: W19.XXXA - Unspecified fall, initial encounter (3) Dizziness ICD Code: R42 - Dizziness and giddiness (4) Scalp laceration ICD Code: S01.01XA - Laceration without foreign body of scalp, initial encounter Status: Acute (5) Renal insufficiency ICD Code: N28.9 - Disorder of kidney and ureter, unspecified (6) Leukocytosis ICD Code: D72.829 - Elevated white blood cell count, unspecified (7) CHF (congestive heart failure) ICD Code: I50.9 - CHF (congestive heart failure) Status: Acute (8) DM (diabetes mellitus) ICD Code: E11.9 - Type 2 diabetes mellitus without complications Assessment and Plan A/P Fall secondary to Presyncope-complained of acute dizziness and presyncopal event , troponin negative. EKG with PVCs and lateral T wave inversions. Patient had an episode of ventricular tachycardia. With head trauma, CT scan of the head unremarkable. Scalp laceration status post concha from the emergency department. Ventricular tachycardia-nonsustained- cardiology consult appreciated;started on Amiodarone drip- s/p cardiac cath with; 1. Widely patent ostial and mid right coronary artery stents placed a year ago. 2. Mild to moderate restenosis of what appears to be a mid LAD stent. 3. Moderate disease of a relatively small caliber ramus intermedius. 4. Normal left ventricular function with estimated ejection fraction of 60%. continue medical treatment. Orthostatic hypotension- hold Coreg today- gentle IV hydration in light of CHF. continue to monitor. Patient also has history of chronic dizziness, on meclizine. 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 management per colorectal surgery- continue Cipro and Flagyl. Chronic systolic and diastolic CHF-Cath 08/14/16 s/p JOHN to RCA, noted to have Diastolic Dysfunction. Echo 01/24/15 w/ EF 40-45%. States recent Echo w/ Dr. Caruso w/ improved EF, will obtain records from outpatient. No evidence of fluid overload at this time. Resumed home medications. Renal Insufficiency: Chronic. will monitor- continue with gentle IV fluid- DM: Sliding scale w/ Accu-Cheks. Hold Metformin. DVT Prophylaxis: SCD/Teds. continue PT. Discharge Planning dc planning to rehab within the next 2-3 days if stable and cleared by consultants. Problem Qualifiers (1) Scalp laceration: Qualified Codes: S01.01XA - Laceration without foreign body of scalp, initial encounter Giselle Wen MD Sep 16, 2017 10:48
[2017-09-16] MEDS ORDERED: VANCOMYCIN 1,000 MG/NS 250 ML IV SCH ×2 (11:00)
[2017-09-16] MEDS ORDERED: SODIUM CHLORID 0.9% 500 ML INJ 500 ML IV ONE (11:00)
[2017-09-16] MEDS: ACETAMINOPHEN/HYDROcodone 325 MG/10 MG TAB PO PRN (16:21)
[2017-09-17] VITALS (26 sets, daily range): BP systolic 89–120; BP diastolic 49–72; PULSE 76–104; RESP 16–18; TEMP 98.1–98.4; O2SAT 94–97
[2017-09-17] MEDS: metroNIDAZOLE 500 MG TAB PO SCH ×3 (01:34→17:27)
[2017-09-17] MEDS: ACETAMINOPHEN/HYDROcodone 325 MG/5 MG TAB PO PRN (03:44)
[2017-09-17] MEDS: INSULIN ASPART SUPPLEMENTAL SCALE SQ SCH ×4 (08:00→21:00)
[2017-09-17] MEDS: CIPROFLOXACIN 500 MG TAB PO SCH ×2 (08:55→20:29)
[2017-09-17] MEDS: ASPIRIN EC 81 MG TABEC PO SCH (08:55)
[2017-09-17] MEDS: SODIUM CHLORIDE 0.9% FLUSH 10 ML FLUSH IV FLUSH SCH ×2 (08:57→20:29)
[2017-09-17] MEDS: ACETAMINOPHEN/HYDROcodone 325 MG/10 MG TAB PO PRN ×2 (10:14→20:29)
--- NOTE | 2017-09-17 10:17 | HHI.PR ---
Subjective Remarks in no acute distress. pain is fairly controlled. no fever. d/w the RN and no acute issues over night. Objective Vitals Vital Signs Date Time Temp Pulse Resp B/P (MAP) Pulse Ox O2 Delivery O2 Flow Rate FiO2 09/17/17 07:00 98.1 90 16 106/49 (68) 94 09/17/17 06:00 76 09/17/17 05:00 84 09/17/17 04:10 83 09/17/17 03:40 98.3 90 18 111/62 (78) 97 09/17/17 03:00 86 09/17/17 02:00 91 09/17/17 01:00 82 09/17/17 00:00 96 09/16/17 23:00 98.5 88 18 105/42 (63) 96 09/16/17 23:00 96 09/16/17 22:00 85 09/16/17 21:00 89 09/16/17 20:00 87 09/16/17 19:38 98.3 87 18 104/44 (64) 97 09/16/17 19:00 86 09/16/17 18:00 80 09/16/17 17:00 86 09/16/17 16:19 98.9 82 18 114/52 (72) 97 09/16/17 16:00 88 09/16/17 15:00 88 09/16/17 14:21 92 09/16/17 13:01 83 09/16/17 13:00 83 09/16/17 12:00 82 09/16/17 11:36 98.9 83 18 96/44 (61) 99 09/16/17 11:00 80 I/O 09/16/17 09/16/17 09/16/17 09/17/17 09/17/17 09/17/17 07:00 15:00 23:00 07:00 15:00 23:00 Intake Total 120 ml 500 ml 1077 ml 480 ml Output Total 20 ml 420 ml 300 ml Balance 120 ml 480 ml 657 ml 180 ml Intake Oral 120 ml 1077 ml 480 ml IV Total 500 ml Output Urine Total 420 ml 300 ml Estimated Blood Loss 20 ml # Voids 3 2 # Bowel Movements 3 2 2 Result Diagram: 09/14/17 0548 09/15/17 0553 Imaging Last Impressions Head CT 09/12/17 0000 Signed Impressions: Service Date/Time: Tuesday, September 12, 2017 21:41 - CONCLUSION: No bleed or other acute intracranial abnormality. Mild sinus disease. Avery Jonas MD Objective Remarks GENERAL: This is a well-nourished, well-developed patient, in no apparent distress. CARDIOVASCULAR: Regular rate and regular rhythm without murmurs, gallops, or rubs. RESPIRATORY: Clear to auscultation. Breath sounds equal bilaterally. No wheezes , rales, or rhonchi. GASTROINTESTINAL: Abdomen soft, non-tender, nondistended. Normal, active bowel sounds MUSCULOSKELETAL: Extremities without clubbing, cyanosis, or edema. NEURO: Alert & Oriented x4 to person, place, time, situation. Moves all ext x4 skin; induration, tenderness and warmth over the right buttock Procedures cardiac cath. Incision and drainage of bilateral ischiorectal abscesses with bilateral fistulotomy. Medications and IVs Current Medications Sodium Chloride (NS Flush) 2 ml UNSCH PRN IVF FLUSH AFTER USING IV ACCESS; Start 09/12/17 at 21:00; Stop 09/12/17 at 22:20; Status DC Lidocaine HCl (Xylocaine-Mpf 1% Inj) 30 ml ONCE ONCE INFIL Last administered on 09/12/17 21:18; Start 09/12/17 at 21:00; Stop 09/12/17 at 21:01; Status DC Dextrose (D50w (Vial) Inj) 50 ml UNSCH PRN IV PUSH HYPOGLYCEMIA-SEE COMMENTS; Start 09/12/17 at 22:15 Glucagon (Glucagon Inj) 1 mg UNSCH PRN OTHER HYPOGLYCEMIA-SEE COMMENTS; Start 09/12/17 at 22:15 Insulin Aspart (NovoLOG SUPPLEMENTAL SCALE) 1 ACHS SLIDING SCALE SQ Last administered on 09/14/17 23:38; Start 09/13/17 at 08:00 Sodium Chloride 1,000 ml @ 100 mls/hr Q10H IV ; Start 09/12/17 at 23:00; Stop 09/12/17 at 23:11; Status DC Sodium Chloride (NS Flush) 2 ml UNSCH PRN IV FLUSH FLUSH AFTER USING IV ACCESS ; Start 09/12/17 at 22:15 Sodium Chloride (NS Flush) 2 ml BID IV FLUSH Last administered on 09/17/17 08 :57; Start 09/13/17 at 09:00 Ondansetron HCl (Zofran Inj) 4 mg Q6H PRN IVP NAUSEA OR VOMITING; Start at 22:15 Acetaminophen (Tylenol) 650 mg Q6H PRN PO FEVER/PAIN SCALE 1 TO 2 Last administered on 09/14/17 16:56; Start 09/12/17 at 22:15 Acetaminophen/ Hydrocodone Bitart ([place] 5-325 Mg) 1 tab Q4H PRN PO PAIN SCALE 3 TO 5 Last administered on 09/17/17 03:44; Start 09/12/17 at 22:15 Acetaminophen/ Hydrocodone Bitart ([place] 10-325 Mg) 1 tab Q4H PRN PO PAIN SCALE 6 TO 10 Last administered on 09/16/17 16:21; Start 09/12/17 at 22:15 Senna/Docusate Sodium (Luz Elena-Colace) 1 tab BID PO Last administered on 22:26; Start 09/13/17 at 09:00; Stop 09/16/17 at 07:34; Status DC Magnesium Hydroxide (Milk Of Magnesia Liq) 30 ml Q12H PRN PO Mild constipation ; Start 09/12/17 at 22:15; Stop 09/16/17 at 07:34; Status DC Sennosides (Senokot) 17.2 mg Q12H PRN PO Moderate constipation; Start at 22:15; Stop 09/16/17 at 07:34; Status DC Bisacodyl (Dulcolax Supp) 10 mg DAILY PRN RECTAL SEVERE CONSITIPATION; Start 09/12/17 at 22:15; Stop 09/16/17 at 07:34; Status DC Lactulose (Lactulose Liq) 30 ml DAILY PRN PO SEVERE CONSITIPATION; Start 09/12 at 22:15; Stop 09/16/17 at 07:34; Status DC Dextrose/Sodium Chloride 500 ml @ 500 mls/hr BOLUS ONCE IV ; Start 09/12/17 at 23:15; Stop 09/13/17 at 00:14; Status Cancel Dextrose/Sodium Chloride 500 ml @ 500 mls/hr Q1H ONCE IV Last administered on 09/13/17 00:37; Start 09/13/17 at 01:00; Stop 09/13/17 at 04:10; Status DC Amiodarone HCl 150 mg/Dextrose 103 ml @ 600 mls/hr Q11M ONCE IV Last administered on 09/13/17 05:08; Start 09/13/17 at 04:33; Stop 09/13/17 at 04 :43; Status DC Amiodarone HCl 450 mg/Dextrose 250 ml @ 33.33 mls/ hr Q7H31M PRN IV Per Protocol Last administered on 09/15/17 01:25; Start 09/13/17 at 04:43; Stop 09/15/17 at 15:39; Status DC Sodium Chloride 1,000 ml @ 84 mls/hr [id number] IV Last administered on 09:30; Start 09/13/17 at 09:30; Stop 09/13/17 at 21:24; Status DC Sodium Chloride 1,000 ml @ 60 mls/hr [id number] IV Last administered on 11:35; Start 09/13/17 at 11:22; Stop 09/18/17 at 11:21 Diphenhydramine HCl (Benadryl) 50 mg OPHTHALMIC TECHNOLOGIST PO ; Start 09/13/17 at 11:30; Stop 09/17/17 at 11:29 Diazepam (Valium) 10 mg OPHTHALMIC TECHNOLOGIST PO ; Start 09/13/17 at 11:30; Stop 09/17/17 at 11:29 Midazolam HCl (Versed Inj) 1 mg OPHTHALMIC TECHNOLOGIST IV PUSH ; Start 09/13/17 at 11:30; Stop 09/17/17 at 11:29 Aspirin (Ecotrin Ec) 81 mg DAILY PO Last administered on 09/17/17 08:55; Start 09/13/17 at 12:00 Carvedilol (Coreg) 3.125 mg Q12HR PO Last administered on 09/15/17 22:25; Start 09/13/17 at 12:00; Status Future Hold Heparin Sodium/ Sodium Chloride 1,000 ml @ As Directed STK-MED ONCE .ROUTE ; Start 09/14/17 at 09:35; Stop 09/14/17 at 09:36; Status DC Verapamil HCl (Isoptin Inj) 5 mg STK-MED ONCE .ROUTE Last administered on 09/14 09:55; Start 09/14/17 at 09:35; Stop 09/14/17 at 09:36; Status DC Heparin Sodium (Porcine) (Heparin Inj) 10,000 units STK-MED ONCE .ROUTE Last administered on 09/14/17 09:55; Start 09/14/17 at 09:35; Stop 09/14/17 at 09 :36; Status DC Nitroglycerin 5 ml @ As Directed STK-MED ONCE .ROUTE ; Start 09/14/17 at 09:35 ; Stop 09/14/17 at 09:36; Status DC Midazolam HCl (Versed Inj) 2 mg STK-MED ONCE .ROUTE Last administered on 10:29; Start 09/14/17 at 10:10; Stop 09/14/17 at 10:11; Status DC Fentanyl Citrate (fentaNYL INJ) 100 mcg STK-MED ONCE .ROUTE Last administered on 09/14/17 10:30; Start 09/14/17 at 10:29; Stop 09/14/17 at 10:30; Status DC Miscellaneous Information 1 ONCE ONCE XX ; Start 09/14/17 at 11:00; Stop at 11:38; Status DC Iohexol (OMNIPAQUE 350 INJ ([employer])) 50 ml STK-MED ONCE OTHER ; Start at 11:13; Stop 09/14/17 at 11:14; Status DC Vancomycin HCl 1000 mg/Sodium Chloride 250 ml @ 250 mls/hr ONCE ONCE IV Last administered on 09/15/17 10:55; Start 09/15/17 at 09:45; Stop 09/15/17 at 10 :44; Status DC Pharmacy Profile Note 0 ml @ 0 mls/hr UNSCH OTHER ; Start 09/15/17 at 09:45; Stop 09/16/17 at 07:32; Status DC Ampicillin Sodium/ Sulbactam Sodium 3 gm/Sodium Chloride 100 ml @ 200 mls/hr Q6H IV Last administered on 09/16/17 05:00; Start 09/15/17 at 11:00; Stop 09/16/17 at 07:40; Status DC Vancomycin HCl 1000 mg/Sodium Chloride 250 ml @ 250 mls/hr Q24H IV ; Start at 11:00; Stop 09/16/17 at 11:00; Status DC Miscellaneous Information SPECIFIC LAB TO BE HAZEL... ONCE ONCE .XX ; Start at 10:45; Stop 09/18/17 at 10:46; Status Cancel Lidocaine/ Epinephrine (Xylocaine-Epi 0.5%-1:200,000 Inj) 50 ml STK-MED ONCE .ROUTE ; Start 09/16/17 at 06:05; Stop 09/16/17 at 06:06; Status DC Metronidazole (Flagyl) 500 mg Q8H PO Last administered on 09/17/17 08:55; Start 09/16/17 at 09:00 Ciprofloxacin (Cipro) 500 mg Q12HR PO Last administered on 09/17/17 08:55; Start 09/16/17 at 09:00 Oxybenzone/ Padimate O/ Dimethicone (Blistex Lip [place]) 4.25 applic STK-MED ONCE TOPICAL ; Start 09/16/17 at 07:55; Stop 09/16/17 at 07:56; Status DC Morphine Sulfate (*morphine INJ PERIprocedure ONLY) 8 mg STK-MED ONCE .ROUTE Last administered on 09/16/17 08:23; Start 09/16/17 at 08:23; Stop 09/16/17 at 08:24; Status DC Miscellaneous Information ALL NURSING DEPARTME... UNSCH PRN .XX SEE LABEL COMMENTS; Start 09/16/17 at 07:37; Stop 09/17/17 at 07:36; Status DC Sodium Chloride 500 ml @ 50 mls/hr Q10H ONCE IV Last administered on 11:00; Start 09/16/17 at 11:00; Stop 09/16/17 at 20:59; Status DC A/P Problem List: (1) Near syncope ICD Code: R55 - Syncope and collapse (2) Fall ICD Code: W19.XXXA - Unspecified fall, initial encounter (3) Dizziness ICD Code: R42 - Dizziness and giddiness (4) Scalp laceration ICD Code: S01.01XA - Laceration without foreign body of scalp, initial encounter Status: Acute (5) Renal insufficiency ICD Code: N28.9 - Disorder of kidney and ureter, unspecified (6) Leukocytosis ICD Code: D72.829 - Elevated white blood cell count, unspecified (7) CHF (congestive heart failure) ICD Code: I50.9 - CHF (congestive heart failure) Status: Acute (8) DM (diabetes mellitus) ICD Code: E11.9 - Type 2 diabetes mellitus without complications Assessment and Plan A/P Fall secondary to Presyncope-complained of acute dizziness and presyncopal event , troponin negative. EKG with PVCs and lateral T wave inversions. Patient had an episode of ventricular tachycardia. With head trauma, CT scan of the head unremarkable. Scalp laceration status post concha from the emergency department. Ventricular tachycardia-nonsustained- cardiology consult appreciated;started on Amiodarone drip- s/p cardiac cath with; 1. Widely patent ostial and mid right coronary artery stents placed a year ago. 2. Mild to moderate restenosis of what appears to be a mid LAD stent. 3. Moderate disease of a relatively small caliber ramus intermedius. 4. Normal left ventricular function with estimated ejection fraction of 60%. continue medical treatment. will resume coreg with close monitoring of BP. Patient also has history of chronic dizziness, on meclizine. 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 management per colorectal surgery- continue Cipro and Flagyl. Chronic systolic and diastolic CHF-Cath 08/14/16 s/p JOHN to RCA, noted to have Diastolic Dysfunction. Echo 01/24/15 w/ EF 40-45%. States recent Echo w/ Dr. Caruso w/ improved EF. No evidence of fluid overload at this time. Resumed home medications. Renal Insufficiency: Chronic. will monitor- continue with gentle IV fluid- DM: Sliding scale w/ Accu-Cheks. Hold Metformin. DVT Prophylaxis: SCD/Teds. continue PT. Discharge Planning dc planning to rehab within the next 1-2 days if stable and cleared by consultants. Problem Qualifiers (1) Scalp laceration: Qualified Codes: S01.01XA - Laceration without foreign body of scalp, initial encounter Giselle Wen MD Sep 17, 2017 10:17
--- NOTE | 2017-09-17 10:27 | HHI.PR ---
Subjective Remarks C/R Surg POD #1 afebrile, VSS UO adeq Loose stool Objective - Vital Signs Date Time Temp Pulse Resp B/P (MAP) Pulse Ox O2 Delivery O2 Flow Rate FiO2 09/17/17 07:00 98.1 90 16 106/49 (68) 94 09/16/17 08:15 Nasal Cannula 2 Result Diagram: 09/14/17 0548 09/15/17 0553 Objective Remarks PE alert Abd - soft Rectal - indurated, lots loose stool, abscess open A/P Assessment and Plan Imp: stable post-op OOB adv diet check stool wound care dc plans Munir Garcia MD Sep 17, 2017 10:27
[2017-09-17] MEDS: SODIUM CHLOR 0.9% 1000 ML INJ 1,000 ML IV SCH (17:46)
[2017-09-17 18:08] LABS: BICARBONATE 24.5 MEQ/L (21.0-32.0); MAGNESIUM 1.5 MG/DL (1.5-2.5); POTASSIUM 3.8 MEQ/L (3.5-5.1)
[2017-09-17] MEDS: CARVEDILOL 3.125 MG TAB PO SCH (20:28)
[2017-09-18] VITALS (14 sets, daily range): BP systolic 98–113; BP diastolic 46–61; PULSE 74–86; RESP 16–20; TEMP 97.6–98.3; O2SAT 96–98
[2017-09-18] MEDS: metroNIDAZOLE 500 MG TAB PO SCH ×3 (01:41→17:04)
[2017-09-18] MEDS: INSULIN ASPART SUPPLEMENTAL SCALE SQ SCH ×4 (08:00→20:17)
[2017-09-18] MEDS: SODIUM CHLORIDE 0.9% FLUSH 10 ML FLUSH IV FLUSH SCH ×2 (09:00→20:17)
[2017-09-18] MEDS: ASPIRIN EC 81 MG TABEC PO SCH (09:12)
[2017-09-18] MEDS: ACETAMINOPHEN/HYDROcodone 325 MG/10 MG TAB PO PRN ×3 (09:13→20:16)
[2017-09-18] MEDS: CARVEDILOL 3.125 MG TAB PO SCH ×2 (09:14→20:16)
[2017-09-18] MEDS: CIPROFLOXACIN 500 MG TAB PO SCH ×2 (09:14→20:16)
[2017-09-18] MEDS: SODIUM CHLOR 0.9% 1000 ML INJ 1,000 ML IV SCH (09:15)
--- NOTE | 2017-09-18 09:55 | HHI.PR ---
Subjective Remarks in no acute distress. denies chest pain or sob. dizziness has improved. no new complaints. Objective Vitals Vital Signs Date Time Temp Pulse Resp B/P (MAP) Pulse Ox O2 Delivery O2 Flow Rate FiO2 09/18/17 09:00 80 09/18/17 08:00 98.3 86 16 106/47 (66) 98 09/18/17 08:00 86 09/18/17 07:00 75 09/18/17 05:00 79 09/18/17 04:00 78 09/18/17 03:15 82 16 107/46 (66) 96 09/18/17 03:00 78 09/18/17 02:00 76 09/18/17 01:00 74 09/18/17 00:00 78 09/17/17 23:15 86 18 108/54 (72) 97 09/17/17 23:00 86 09/17/17 22:00 92 09/17/17 21:34 16 09/17/17 21:00 88 09/17/17 20:00 88 09/17/17 19:00 96 09/17/17 19:00 98.3 98 16 120/72 (88) 97 09/17/17 18:00 88 09/17/17 17:00 92 09/17/17 16:00 84 09/17/17 15:00 97 09/17/17 15:00 98.4 89 16 89/53 (65) 96 09/17/17 14:00 93 09/17/17 13:00 104 09/17/17 12:00 94 09/17/17 11:00 87 09/17/17 11:00 85 09/17/17 11:00 98.3 94 16 110/56 (74) 95 09/17/17 10:00 83 I/O 09/17/17 09/17/17 09/17/17 09/18/17 09/18/17 09/18/17 07:00 15:00 23:00 07:00 15:00 23:00 Intake Total 480 ml 200 ml Output Total 300 ml Balance 180 ml 200 ml Intake Oral 480 ml 200 ml Output Urine Total 300 ml # Voids 0 52 # Bowel Movements 2 0 1 Result Diagram: 09/14/17 0548 09/17/17 1723 Imaging Last Impressions Head CT 09/12/17 0000 Signed Impressions: Service Date/Time: Tuesday, September 12, 2017 21:41 - CONCLUSION: No bleed or other acute intracranial abnormality. Mild sinus disease. Avery Jonas MD Objective Remarks GENERAL: This is a well-nourished, well-developed patient, in no apparent distress. CARDIOVASCULAR: Regular rate and regular rhythm without murmurs, gallops, or rubs. RESPIRATORY: Clear to auscultation. Breath sounds equal bilaterally. No wheezes , rales, or rhonchi. GASTROINTESTINAL: Abdomen soft, non-tender, nondistended. Normal, active bowel sounds MUSCULOSKELETAL: Extremities without clubbing, cyanosis, or edema. NEURO: Alert & Oriented x4 to person, place, time, situation. Moves all ext x4 skin; induration, tenderness and warmth over the right buttock Procedures cardiac cath. Incision and drainage of bilateral ischiorectal abscesses with bilateral fistulotomy. Medications and IVs Current Medications Sodium Chloride (NS Flush) 2 ml UNSCH PRN IVF FLUSH AFTER USING IV ACCESS; Start 09/12/17 at 21:00; Stop 09/12/17 at 22:20; Status DC Lidocaine HCl (Xylocaine-Mpf 1% Inj) 30 ml ONCE ONCE INFIL Last administered on 09/12/17 21:18; Start 09/12/17 at 21:00; Stop 09/12/17 at 21:01; Status DC Dextrose (D50w (Vial) Inj) 50 ml UNSCH PRN IV PUSH HYPOGLYCEMIA-SEE COMMENTS; Start 09/12/17 at 22:15 Glucagon (Glucagon Inj) 1 mg UNSCH PRN OTHER HYPOGLYCEMIA-SEE COMMENTS; Start 09/12/17 at 22:15 Insulin Aspart (NovoLOG SUPPLEMENTAL SCALE) 1 ACHS SLIDING SCALE SQ Last administered on 09/14/17 23:38; Start 09/13/17 at 08:00 Sodium Chloride 1,000 ml @ 100 mls/hr Q10H IV ; Start 09/12/17 at 23:00; Stop 09/12/17 at 23:11; Status DC Sodium Chloride (NS Flush) 2 ml UNSCH PRN IV FLUSH FLUSH AFTER USING IV ACCESS ; Start 09/12/17 at 22:15 Sodium Chloride (NS Flush) 2 ml BID IV FLUSH Last administered on 09/18/17 09 :00; Start 09/13/17 at 09:00 Ondansetron HCl (Zofran Inj) 4 mg Q6H PRN IVP NAUSEA OR VOMITING; Start at 22:15 Acetaminophen (Tylenol) 650 mg Q6H PRN PO FEVER/PAIN SCALE 1 TO 2 Last administered on 09/14/17 16:56; Start 09/12/17 at 22:15 Acetaminophen/ Hydrocodone Bitart ([place] 5-325 Mg) 1 tab Q4H PRN PO PAIN SCALE 3 TO 5 Last administered on 09/17/17 03:44; Start 09/12/17 at 22:15 Acetaminophen/ Hydrocodone Bitart ([place] 10-325 Mg) 1 tab Q4H PRN PO PAIN SCALE 6 TO 10 Last administered on 09/18/17 09:13; Start 09/12/17 at 22:15 Senna/Docusate Sodium ([place]uz [place]-Colace) 1 tab BID PO Last administered on 22:26; Start 09/13/17 at 09:00; Stop 09/16/17 at 07:34; Status DC Magnesium Hydroxide (Milk Of Magnesia Liq) 30 ml Q12H PRN PO Mild constipation ; Start 09/12/17 at 22:15; Stop 09/16/17 at 07:34; Status DC Sennosides (Senokot) 17.2 mg Q12H PRN PO Moderate constipation; Start at 22:15; Stop 09/16/17 at 07:34; Status DC Bisacodyl (Dulcolax Supp) 10 mg DAILY PRN RECTAL SEVERE CONSITIPATION; Start 09/12/17 at 22:15; Stop 09/16/17 at 07:34; Status DC Lactulose (Lactulose Liq) 30 ml DAILY PRN PO SEVERE CONSITIPATION; Start 09/12 at 22:15; Stop 09/16/17 at 07:34; Status DC Dextrose/Sodium Chloride 500 ml @ 500 mls/hr BOLUS ONCE IV ; Start 09/12/17 at 23:15; Stop 09/13/17 at 00:14; Status Cancel Dextrose/Sodium Chloride 500 ml @ 500 mls/hr Q1H ONCE IV Last administered on 09/13/17 00:37; Start 09/13/17 at 01:00; Stop 09/13/17 at 04:10; Status DC Amiodarone HCl 150 mg/Dextrose 103 ml @ 600 mls/hr Q11M ONCE IV Last administered on 09/13/17 05:08; Start 09/13/17 at 04:33; Stop 09/13/17 at 04 :43; Status DC Amiodarone HCl 450 mg/Dextrose 250 ml @ 33.33 mls/ hr Q7H31M PRN IV Per Protocol Last administered on 09/15/17 01:25; Start 09/13/17 at 04:43; Stop 09/15/17 at 15:39; Status DC Sodium Chloride 1,000 ml @ 84 mls/hr [id number] IV Last administered on 09:30; Start 09/13/17 at 09:30; Stop 09/13/17 at 21:24; Status DC Sodium Chloride 1,000 ml @ 60 mls/hr [id number] IV Last administered on 11:35; Start 09/13/17 at 11:22; Stop 09/18/17 at 11:21 Diphenhydramine HCl (Benadryl) 50 mg FILLER PICKER PO ; Start 09/13/17 at 11:30; Stop 09/17/17 at 11:29; Status DC Diazepam (Valium) 10 mg FILLER PICKER PO ; Start 09/13/17 at 11:30; Stop 09/17/17 at 11:29; Status DC Midazolam HCl (Versed Inj) 1 mg FILLER PICKER IV PUSH ; Start 09/13/17 at 11:30; Stop 09/17/17 at 11:29; Status DC Aspirin (Ecotrin Ec) 81 mg DAILY PO Last administered on 09/18/17 09:12; Start 09/13/17 at 12:00 Carvedilol (Coreg) 3.125 mg Q12HR PO Last administered on 09/18/17 09:14; Start 09/13/17 at 12:00; Status Future hold Heparin Sodium/ Sodium Chloride 1,000 ml @ As Directed STK-MED ONCE .ROUTE ; Start 09/14/17 at 09:35; Stop 09/14/17 at 09:36; Status DC Verapamil HCl (Isoptin Inj) 5 mg STK-MED ONCE .ROUTE Last administered on 09/14 09:55; Start 09/14/17 at 09:35; Stop 09/14/17 at 09:36; Status DC Heparin Sodium (Porcine) (Heparin Inj) 10,000 units STK-MED ONCE .ROUTE Last administered on 09/14/17 09:55; Start 09/14/17 at 09:35; Stop 09/14/17 at 09 :36; Status DC Nitroglycerin 5 ml @ As Directed STK-MED ONCE .ROUTE ; Start 09/14/17 at 09:35 ; Stop 09/14/17 at 09:36; Status DC Midazolam HCl (Versed Inj) 2 mg STK-MED ONCE .ROUTE Last administered on 10:29; Start 09/14/17 at 10:10; Stop 09/14/17 at 10:11; Status DC Fentanyl Citrate (fentaNYL INJ) 100 mcg STK-MED ONCE .ROUTE Last administered on 09/14/17 10:30; Start 09/14/17 at 10:29; Stop 09/14/17 at 10:30; Status DC Miscellaneous Information 1 ONCE ONCE XX ; Start 09/14/17 at 11:00; Stop at 11:38; Status DC Iohexol (OMNIPAQUE 350 INJ (Pbx Installer)) 50 ml STK-MED ONCE OTHER ; Start at 11:13; Stop 09/14/17 at 11:14; Status DC Vancomycin HCl 1000 mg/Sodium Chloride 250 ml @ 250 mls/hr ONCE ONCE IV Last administered on 09/15/17 10:55; Start 09/15/17 at 09:45; Stop 09/15/17 at 10 :44; Status DC Pharmacy Profile Note 0 ml @ 0 mls/hr UNSCH OTHER ; Start 09/15/17 at 09:45; Stop 09/16/17 at 07:32; Status DC Ampicillin Sodium/ Sulbactam Sodium 3 gm/Sodium Chloride 100 ml @ 200 mls/hr Q6H IV Last administered on 09/16/17 05:00; Start 09/15/17 at 11:00; Stop 09/16/17 at 07:40; Status DC Vancomycin HCl 1000 mg/Sodium Chloride 250 ml @ 250 mls/hr Q24H IV ; Start at 11:00; Stop 09/16/17 at 11:00; Status DC Miscellaneous Information SPECIFIC LAB TO BE HAZEL... ONCE ONCE .XX ; Start at 10:45; Stop 09/18/17 at 10:46; Status Cancel Lidocaine/ Epinephrine (Xylocaine-Epi 0.5%-1:200,000 Inj) 50 ml STK-MED ONCE .ROUTE ; Start 09/16/17 at 06:05; Stop 09/16/17 at 06:06; Status DC Metronidazole (Flagyl) 500 mg Q8H PO Last administered on 09/18/17 09:14; Start 09/16/17 at 09:00 Ciprofloxacin (Cipro) 500 mg Q12HR PO Last administered on 09/18/17 09:14; Start 09/16/17 at 09:00 Oxybenzone/ Padimate O/ Dimethicone (Blistex Lip [place]) 4.25 applic STK-MED ONCE TOPICAL ; Start 09/16/17 at 07:55; Stop 09/16/17 at 07:56; Status DC Morphine Sulfate (*morphine INJ PERIprocedure ONLY) 8 mg STK-MED ONCE .ROUTE Last administered on 09/16/17 08:23; Start 09/16/17 at 08:23; Stop 09/16/17 at 08:24; Status DC Miscellaneous Information ALL NURSING DEPARTME... UNSCH PRN .XX SEE LABEL COMMENTS; Start 09/16/17 at 07:37; Stop 09/17/17 at 07:36; Status DC Sodium Chloride 500 ml @ 50 mls/hr Q10H ONCE IV Last administered on 11:00; Start 09/16/17 at 11:00; Stop 09/16/17 at 20:59; Status DC A/P Problem List: (1) Near syncope ICD Code: R55 - Syncope and collapse (2) Fall ICD Code: W19.XXXA - Unspecified fall, initial encounter (3) Dizziness ICD Code: R42 - Dizziness and giddiness (4) Scalp laceration ICD Code: S01.01XA - Laceration without foreign body of scalp, initial encounter Status: Acute (5) Renal insufficiency ICD Code: N28.9 - Disorder of kidney and ureter, unspecified (6) Leukocytosis ICD Code: D72.829 - Elevated white blood cell count, unspecified (7) CHF (congestive heart failure) ICD Code: I50.9 - CHF (congestive heart failure) Status: Acute (8) DM (diabetes mellitus) ICD Code: E11.9 - Type 2 diabetes mellitus without complications Assessment and Plan A/P Fall secondary to Presyncope-complained of acute dizziness and presyncopal event , troponin negative. EKG with PVCs and lateral T wave inversions. Patient had an episode of ventricular tachycardia. With head trauma, CT scan of the head unremarkable. Scalp laceration status post concha from the emergency department. Ventricular tachycardia-nonsustained- cardiology consult appreciated- s/p cardiac cath with; 1. Widely patent ostial and mid right coronary artery stents placed a year ago. 2. Mild to moderate restenosis of what appears to be a mid LAD stent. 3. Moderate disease of a relatively small caliber ramus intermedius. 4. Normal left ventricular function with estimated ejection fraction of 60%. continue medical treatment.resumed coreg with close monitoring of BP. Patient also has history of chronic dizziness, on meclizine.overall improved. 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 management per colorectal surgery- continue Cipro and Flagyl. Chronic systolic and diastolic CHF-Cath 08/14/16 s/p JOHN to RCA, noted to have Diastolic Dysfunction. Echo 01/24/15 w/ EF 40-45%. States recent Echo w/ Dr. Caruso w/ improved EF. No evidence of fluid overload at this time. Resumed home medications. Renal Insufficiency: Chronic. will monitor- DM: Sliding scale w/ Accu-Cheks. Hold Metformin. DVT Prophylaxis: SCD/Teds. continue PT. Discharge Planning dc planning to rehab -possibly over the weekend- if stable and cleared by colorectal surgery. Problem Qualifiers (1) Scalp laceration: Qualified Codes: S01.01XA - Laceration without foreign body of scalp, initial encounter Giselle Wen MD Sep 18, 2017 09:55
[2017-09-18] MEDS ORDERED: NOVOLOGP2 SQ (10:30)
[2017-09-18] MEDS ORDERED: PHARMACY ORDERED LAB ONE (10:45)
--- NOTE | 2017-09-18 16:03 | HHI.PR ---
Subjective Remarks C/R Surg POD #2 afebrile, VSS UO adeq Loose stool Objective - Vital Signs Date Time Temp Pulse Resp B/P (MAP) Pulse Ox O2 Delivery O2 Flow Rate FiO2 09/18/17 12:00 98.3 78 20 98/46 (63) 97 09/16/17 08:15 Nasal Cannula 2 Result Diagram: 09/14/17 0548 09/17/17 1723 Objective Remarks PE alert Abd - soft Rectal - indurated, lots loose stool, abscess open/ dry A/P Assessment and Plan Imp: OOB adv diet check stool wound care dc plans Munir Garcia MD Sep 18, 2017 16:03
[2017-09-19] VITALS: BP 118/56; PULSE 77; RESP 20; TEMP 98.1; O2SAT 97
[2017-09-19] MEDS: metroNIDAZOLE 500 MG TAB PO SCH ×3 (01:17→18:06)
[2017-09-19 04:00] VITALS: BP 113/54; PULSE 77; RESP 20; TEMP 97.8; O2SAT 98
[2017-09-19] MEDS: ACETAMINOPHEN/HYDROcodone 325 MG/10 MG TAB PO PRN ×3 (04:01→21:56)
[2017-09-19 05:49] LABS: C. DIFF EPI 027 PRESUMPTIVE NEGATIVE (NEGATIVE)
--- NOTE | 2017-09-19 07:48 | HHI.PR ---
Subjective Remarks Diarrhea has stopped. Pt had a lot of laxatives pro op. ? C. Diff positive, but asymptomatic at this time. On Flagyl. Cipro D/Cd. No need for antibiotics for wound. Objective Vital Signs Date Time Temp Pulse Resp B/P (MAP) Pulse Ox O2 Delivery O2 Flow Rate FiO2 09/19/17 04:00 97.8 77 20 113/54 (73) 98 09/19/17 00:00 98.1 77 20 118/56 (76) 97 09/18/17 20:00 97.8 79 20 113/61 (78) 98 09/18/17 16:00 97.6 74 18 105/54 (71) 97 09/18/17 12:00 98.3 78 20 98/46 (63) 97 09/18/17 11:52 80 09/18/17 09:00 80 09/18/17 08:00 98.3 86 16 106/47 (66) 98 09/18/17 08:00 86 I/O 09/18/17 09/18/17 09/18/17 09/19/17 09/19/17 09/19/17 07:00 15:00 23:00 07:00 15:00 23:00 Intake Total 200 ml 240 ml 480 ml Balance 200 ml 240 ml 480 ml Intake Oral 200 ml 240 ml 480 ml # Voids 52 2 # Bowel Movements 1 1 2 Result Diagram: 09/17/17 1723 Objective Remarks VS-S Abd: benign Rectal: wound clean Assessment and Plan Assessment and Plan Stable post op D/C anytime OK with CRS. Avery Ozuna MD Sep 19, 2017 07:48
[2017-09-19 08:00] VITALS: BP 133/60; PULSE 78; RESP 20; TEMP 98.2; O2SAT 98
[2017-09-19] MEDS: INSULIN ASPART SUPPLEMENTAL SCALE SQ SCH ×4 (08:00→21:00)
[2017-09-19] MEDS: CARVEDILOL 3.125 MG TAB PO SCH ×2 (09:12→21:55)
[2017-09-19] MEDS: ASPIRIN EC 81 MG TABEC PO SCH (09:13)
[2017-09-19 09:20] LABS: AUTOMATED NEUTROPHIL # 6.3 TH/MM3 (1.8-7.7); BASOPHIL # 0.1 TH/MM3 (0-0.2); BASOPHIL % 0.9 % (0.0-2.0); EOSINOPHIL # 0.4 TH/MM3 (0-0.4); EOSINOPHIL % 4.9 % (0.0-4.0); HEMATOCRIT 29.7 % (35.0-46.0); HEMO FLAGS DIFF FINAL; LYMPH % 11.5 % (9.0-44.0); MEAN CORPUSCULAR HEMOGLOBIN 29.8 PG (27.0-34.0); MEAN CORPUSCULAR HGB CONC 33.4 % (32.0-36.0); MONO % 12.4 % (0.0-8.0); NEUT % 70.3 % (16.0-70.0); PLATELET COUNT 268 TH/MM3 (150-450); RED BLOOD COUNT 3.34 MIL/MM3 (4.00-5.30); RED CELL DISTRIBUTION WIDTH 15.6 % (11.6-17.2)
[2017-09-19 09:43] LABS: BICARBONATE 22.2 MEQ/L (21.0-32.0); MAGNESIUM 1.7 MG/DL (1.5-2.5); POTASSIUM 3.5 MEQ/L (3.5-5.1)
[2017-09-19 12:00] VITALS: BP 116/54; PULSE 82; RESP 20; TEMP 97.9; O2SAT 95
--- NOTE | 2017-09-19 13:58 | HHI.PR ---
Subjective Remarks Follow-up C. difficile. Improving diarrhea denies nausea and abdominal pain. CRS discontinued ciprofloxacin. Patient on Flagyl. Discussed with RN and case management, awaiting him on hospitalization for rehabilitation as recommended by physical therapy Objective Vitals Vital Signs Date Time Temp Pulse Resp B/P (MAP) Pulse Ox O2 Delivery O2 Flow Rate FiO2 09/19/17 12:00 97.9 82 20 116/54 (74) 95 09/19/17 08:20 21 09/19/17 08:00 98.2 78 20 133/60 (84) 98 09/19/17 04:00 97.8 77 20 113/54 (73) 98 09/19/17 00:00 98.1 77 20 118/56 (76) 97 09/18/17 20:00 97.8 79 20 113/61 (78) 98 09/18/17 16:00 97.6 74 18 105/54 (71) 97 I/O 09/18/17 09/18/17 09/18/17 09/19/17 09/19/17 09/19/17 07:00 15:00 23:00 07:00 15:00 23:00 Intake Total 200 ml 240 ml 480 ml Balance 200 ml 240 ml 480 ml Intake Oral 200 ml 240 ml 480 ml # Voids 52 2 # Bowel Movements 1 1 2 Result Diagram: 09/19/17 0848 09/19/17 0848 Imaging Last Impressions Head CT 09/12/17 0000 Signed Impressions: Service Date/Time: Tuesday, September 12, 2017 21:41 - CONCLUSION: No bleed or other acute intracranial abnormality. Mild sinus disease. Avery Jonas MD Objective Remarks GENERAL: Well-developed, well-nourished in no distress SKIN: Warm and dry. CARDIOVASCULAR: Regular rate and rhythm. RESPIRATORY: No accessory muscle use. Clear to auscultation. Breath sounds equal bilaterally. GASTROINTESTINAL: Abdomen soft, non-tender, nondistended. MUSCULOSKELETAL: Extremities without clubbing, cyanosis, or edema. No obvious deformities. NEUROLOGICAL: Awake and alert. No obvious cranial nerve deficits. Motor grossly within normal limits. Five out of 5 muscle strength in the arms and legs. Normal speech. PSYCHIATRIC: Appropriate mood and affect; insight and judgment normal. Procedures cardiac cath Incision and drainage of bilateral ischiorectal abscesses with bilateral fistulotomy. A/P Problem List: (1) Near syncope ICD Code: R55 - Syncope and collapse (2) Fall ICD Code: W19.XXXA - Unspecified fall, initial encounter (3) Dizziness ICD Code: R42 - Dizziness and giddiness (4) Scalp laceration ICD Code: S01.01XA - Laceration without foreign body of scalp, initial encounter Status: Acute (5) Renal insufficiency ICD Code: N28.9 - Disorder of kidney and ureter, unspecified (6) Leukocytosis ICD Code: D72.829 - Elevated white blood cell count, unspecified (7) CHF (congestive heart failure) ICD Code: I50.9 - CHF (congestive heart failure) Status: Acute (8) DM (diabetes mellitus) ICD Code: E11.9 - Type 2 diabetes mellitus without complications Assessment and Plan Fall secondary to Presyncope-complained of acute dizziness and presyncopal event , troponin negative. EKG with PVCs and lateral T wave inversions. Patient had an episode of ventricular tachycardia. With head trauma, CT scan of the head unremarkable. Scalp laceration status post concha from the emergency department. Wound care and physical therapy Ventricular tachycardia-nonsustained- cardiology consult appreciated- s/p cardiac cath with; 1. Widely patent ostial and mid right coronary artery stents placed a year ago. 2. Mild to moderate restenosis of what appears to be a mid LAD stent. 3. Moderate disease of a relatively small caliber ramus intermedius. 4. Normal left ventricular function with estimated ejection fraction of 60%. continue medical treatment. Continue aspirin and coreg with close monitoring of BP. Resume Effient and Pravachol Patient also has history of chronic dizziness, on meclizine. Overall improved. Fall precautions bilateral ischiorectal abscesses- s/p Incision and drainage with bilateral fistulotomy. management per colorectal surgery- continue Flagyl. Status post Cipro C. difficile. Continue Flagyl. Monitor for dehydration Chronic systolic and diastolic CHF-Cath 08/14/16 s/p JOHN to RCA, noted to have Diastolic Dysfunction. Echo 01/24/15 w/ EF 40-45%. States recent Echo w/ Dr. Caruso w/ improved EF. No evidence of fluid overload at this time. Resumed home medications. 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 Hold Metformin. Fingerstick stable DVT Prophylaxis: SCD/Teds. Discharge Planning Discharge when accepted by SNF Problem Qualifiers (1) Scalp laceration: Qualified Codes: S01.01XA - Laceration without foreign body of scalp, initial encounter Shaheen Duran MD Sep 19, 2017 13:58
[2017-09-19] MEDS ORDERED: POTASSIUM CHLORIDE 20 MEQ CONTROLLED RELEASE TAB PO ONE (14:00)
[2017-09-19] MEDS ORDERED: METR-1 PO (14:02)
[2017-09-19] MEDS ORDERED: HYDR-3583 PO (14:02)
--- NOTE | 2017-09-19 14:02 | HHI.DCPOC ---
Discharge Care Plan Diagnosis: (1) Ischiorectal abscess and fistula Your Health Problems Are: Difficulty with ADL Exercise Tolerance Goals to Promote Your Health * To prevent worsening of your condition and complications * To maintain your health at the optimal level Directions to Meet Your Goals Take your medications as prescribed Follow your dietary instruction Follow activity as directed Keep your appointments as scheduled Take your immunizations and boosters as scheduled If your symptoms worsen call your PCP, if no PCP go to Urgent Care Center or Emergency Room Smoking is Dangerous to Your Health. Avoid second hand smoke Call the 24-hour hour crisis hotline for domestic abuse at Shaheen Duran MD Sep 19, 2017 14:02
[2017-09-19] MEDS ORDERED: CIPROFLOXACIN 500 MG TAB PO SCH (15:00)
[2017-09-19 16:00] VITALS: BP 123/60; PULSE 78; RESP 20; TEMP 97.8; O2SAT 96
[2017-09-19] MEDS: LEVOTHYROXINE SODIUM 50 MCG TAB PO SCH (16:07)
[2017-09-19] MEDS: PRASUGREL 10 MG TAB PO SCH (16:07)
[2017-09-19 20:00] VITALS: BP 104/64; PULSE 73; RESP 24; TEMP 97.9; O2SAT 94
[2017-09-19] MEDS: SODIUM CHLORIDE 0.9% FLUSH 10 ML FLUSH IV FLUSH SCH ×2 (21:00→21:56)
[2017-09-19] MEDS: PRAVASTATIN SOD 40 MG TAB PO SCH (21:56)
[2017-09-20] VITALS: BP 118/70; PULSE 77; RESP 22; TEMP 98; O2SAT 93
[2017-09-20] MEDS: metroNIDAZOLE 500 MG TAB PO SCH ×3 (00:48→17:39)
[2017-09-20 04:00] VITALS: BP 92/48; PULSE 80; RESP 19; TEMP 97.8; O2SAT 94
[2017-09-20] MEDS: LEVOTHYROXINE SODIUM 50 MCG TAB PO SCH (06:28)
[2017-09-20 08:00] VITALS: BP 132/60; PULSE 72; RESP 20; TEMP 98; O2SAT 99
[2017-09-20] MEDS: INSULIN ASPART SUPPLEMENTAL SCALE SQ SCH ×4 (08:00→21:00)
[2017-09-20] MEDS: SODIUM CHLORIDE 0.9% FLUSH 10 ML FLUSH IV FLUSH SCH ×2 (09:00→21:17)
[2017-09-20] MEDS: CARVEDILOL 3.125 MG TAB PO SCH ×2 (09:46→21:12)
[2017-09-20] MEDS: PRASUGREL 10 MG TAB PO SCH (09:47)
[2017-09-20] MEDS: ASPIRIN EC 81 MG TABEC PO SCH (09:47)
[2017-09-20] MEDS: ACETAMINOPHEN/HYDROcodone 325 MG/10 MG TAB PO PRN (09:48)
--- NOTE | 2017-09-20 09:51 | HHI.PR ---
Subjective Remarks Pt really not OOB ambulating. Needs more active PT. Becoming deconditioned. Not getting sitz baths for large perianal wound TID and prn after BMs as ordered. Objective Vital Signs Date Time Temp Pulse Resp B/P (MAP) Pulse Ox O2 Delivery O2 Flow Rate FiO2 09/20/17 08:00 98.0 72 20 132/60 (84) 99 09/20/17 04:00 97.8 80 19 92/48 (63) 94 09/20/17 00:00 98.0 77 22 118/70 (86) 93 09/19/17 20:00 97.9 73 24 104/64 (77) 94 09/19/17 20:00 Room Air 09/19/17 16:00 97.8 78 20 123/60 (81) 96 09/19/17 12:00 97.9 82 20 116/54 (74) 95 I/O 09/19/17 09/19/17 09/19/17 09/20/17 09/20/17 09/20/17 07:00 15:00 23:00 07:00 15:00 23:00 Intake Total 480 ml 720 ml 680 ml Balance 480 ml 720 ml 680 ml Intake Oral 480 ml 720 ml 680 ml # Voids 2 6 # Bowel Movements 2 4 Result Diagram: 09/19/1784709/19/17847 Objective Remarks VS-S Abd: benign Rectal: wound with stool on it. O/W open Assessment and Plan Assessment and Plan Stable post op D/C anytime OK with CRS. Needs OOB and PT Needs wound care as instructed. Avery Ozuna MD Sep 20, 2017 09:51
[2017-09-20 12:00] VITALS: BP 127/60; PULSE 70; RESP 20; TEMP 98; O2SAT 97
--- NOTE | 2017-09-20 12:05 | HHI.PR ---
Subjective Remarks Follow-up C. difficile colitis. Stools are semi-formed. Discussed with RN Objective Vitals Vital Signs Date Time Temp Pulse Resp B/P (MAP) Pulse Ox O2 Delivery O2 Flow Rate FiO2 09/20/17 08:00 98.0 72 20 132/60 (84) 99 09/20/17 04:00 97.8 80 19 92/48 (63) 94 09/20/17 00:00 98.0 77 22 118/70 (86) 93 09/19/17 20:00 97.9 73 24 104/64 (77) 94 09/19/17 20:00 Room Air 09/19/17 16:00 97.8 78 20 123/60 (81) 96 I/O 09/19/17 09/19/17 09/19/17 09/20/17 09/20/17 09/20/17 07:00 15:00 23:00 07:00 15:00 23:00 Intake Total 480 ml 720 ml 680 ml Balance 480 ml 720 ml 680 ml Intake Oral 480 ml 720 ml 680 ml # Voids 2 6 1 # Bowel Movements 2 4 Result Diagram: 09/19/1748 09/19/17 0848 Objective Remarks GENERAL: Well-developed, well-nourished in no distress. No signs of dehydration SKIN: Warm and dry. CARDIOVASCULAR: Regular rate and rhythm. RESPIRATORY: No accessory muscle use. Clear to auscultation. Breath sounds equal bilaterally. GASTROINTESTINAL: Abdomen soft, non-tender, nondistended. MUSCULOSKELETAL: Extremities without clubbing, cyanosis, or edema. No obvious deformities. NEUROLOGICAL: Awake and alert. No obvious cranial nerve deficits. Motor grossly within normal limits. Five out of 5 muscle strength in the arms and legs. Normal speech. PSYCHIATRIC: Appropriate mood and affect; insight and judgment normal. Procedures cardiac cath Incision and drainage of bilateral ischiorectal abscesses with bilateral fistulotomy. A/P Problem List: (1) Near syncope ICD Code: R55 - Syncope and collapse (2) Fall ICD Code: W19.XXXA - Unspecified fall, initial encounter (3) Dizziness ICD Code: R42 - Dizziness and giddiness (4) Scalp laceration ICD Code: S01.01XA - Laceration without foreign body of scalp, initial encounter Status: Acute (5) Renal insufficiency ICD Code: N28.9 - Disorder of kidney and ureter, unspecified (6) Leukocytosis ICD Code: D72.829 - Elevated white blood cell count, unspecified (7) CHF (congestive heart failure) ICD Code: I50.9 - CHF (congestive heart failure) Status: Acute (8) DM (diabetes mellitus) ICD Code: E11.9 - Type 2 diabetes mellitus without complications Assessment and Plan Fall secondary to Presyncope-complained of acute dizziness and presyncopal event , troponin negative. EKG with PVCs and lateral T wave inversions. Patient had an episode of ventricular tachycardia. With head trauma, CT scan of the head unremarkable. Scalp laceration status post concha from the emergency department. Wound care and physical therapy Ventricular tachycardia-nonsustained- cardiology consult appreciated- s/p cardiac cath with; 1. Widely patent ostial and mid right coronary artery stents placed a year ago. 2. Mild to moderate restenosis of what appears to be a mid LAD stent. 3. Moderate disease of a relatively small caliber ramus intermedius. 4. Normal left ventricular function with estimated ejection fraction of 60%. Recommended medical management Continue aspirin and coreg with close monitoring of BP. Resume Effient and Pravachol Patient also has history of chronic dizziness, on meclizine. Overall improved. Fall precautions bilateral ischiorectal abscesses- s/p Incision and drainage with bilateral fistulotomy. management per colorectal surgery- continue Flagyl. Status post Cipro C. difficile. Continue Flagyl. Monitor for dehydration Chronic systolic and diastolic CHF-Cath 08/14/16 s/p JOHN to RCA, noted to have Diastolic Dysfunction. Echo 01/24/15 w/ EF 40-45%. States recent Echo w/ Dr. Caruso w/ improved EF. No evidence of fluid overload at this time. Resumed home medications. 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 Hold Metformin. Fingerstick stable DVT Prophylaxis: SCD/Teds. Discharge Planning Discharge when accepted by SNF Problem Qualifiers (1) Scalp laceration: Qualified Codes: S01.01XA - Laceration without foreign body of scalp, initial encounter Shaheen Duran MD Sep 20, 2017 12:05
[2017-09-20 16:00] VITALS: BP 113/56; PULSE 75; RESP 20; TEMP 97.6; O2SAT 95
[2017-09-20 20:00] VITALS: BP 129/58; PULSE 71; RESP 22; TEMP 98; O2SAT 97
[2017-09-20] MEDS: PRAVASTATIN SOD 40 MG TAB PO SCH (21:12)
[2017-09-21] VITALS (7 sets, daily range): BP systolic 117–141; BP diastolic 55–61; PULSE 68–97; RESP 18–22; TEMP 97.4–98.7; O2SAT 95–99
[2017-09-21] MEDS: metroNIDAZOLE 500 MG TAB PO SCH ×3 (00:18→15:44)
[2017-09-21] MEDS: diphenhydrAMINE HCL 25 MG CAP PO PRN ×2 (00:18→06:05)
[2017-09-21] MEDS: LEVOTHYROXINE SODIUM 50 MCG TAB PO SCH (06:05)
[2017-09-21] MEDS: ACETAMINOPHEN/HYDROcodone 325 MG/10 MG TAB PO PRN ×2 (06:05→10:00)
[2017-09-21] MEDS: INSULIN ASPART SUPPLEMENTAL SCALE SQ SCH ×4 (08:00→21:00)
--- NOTE | 2017-09-21 09:58 | HHI.PR ---
Subjective Remarks Pt really not OOB ambulating. Needs more active PT. Becoming deconditioned. Not getting sitz baths for large perianal wound TID and prn after BMs as ordered. Wound not adequately packed this AM. D/W RNs Cinthya and Marii. showed them how I want wound treated and packed. Objective Vital Signs Date Time Temp Pulse Resp B/P (MAP) Pulse Ox O2 Delivery O2 Flow Rate FiO2 09/21/17 04:00 98.2 88 22 124/58 (80) 95 09/21/17 00:00 98.3 68 20 121/57 (78) 98 09/21/17 00:00 Room Air 09/20/17 21:00 Room Air 09/20/17 20:00 98.0 71 22 129/58 (81) 97 09/20/17 16:00 97.6 75 20 113/56 (75) 95 09/20/17 12:00 98.0 70 20 127/60 (82) 97 I/O 09/20/17 09/20/17 09/20/17 09/21/17 09/21/17 09/21/17 07:00 15:00 23:00 07:00 15:00 23:00 Intake Total 680 ml 360 ml 720 ml 560 ml Balance 680 ml 360 ml 720 ml 560 ml Intake Oral 680 ml 360 ml 720 ml 560 ml # Voids 6 2 3 6 # Bowel Movements 4 1 4 Result Diagram: 09/19/1784709/19/17847 Objective Remarks VS-S Abd: benign Rectal: wound clean with mild debris. Repacked while instructing Serafin Mcmahon at bedside Assessment and Plan Assessment and Plan Stable post op Needs OOB and PT Needs wound care as instructed. Will rewrite orders. Avery Ozuna MD Sep 21, 2017 09:58
[2017-09-21] MEDS ORDERED: SODIUM CHLOR 0.9% 1000 ML INJ 1,000 ML IV SCH (10:45)
[2017-09-21] MEDS: PRASUGREL 10 MG TAB PO SCH (11:03)
[2017-09-21] MEDS: ASPIRIN EC 81 MG TABEC PO SCH (11:03)
[2017-09-21] MEDS: SODIUM CHLORIDE 0.9% FLUSH 10 ML FLUSH IV FLUSH SCH ×2 (11:03→22:08)
[2017-09-21 12:57] LABS: AUTOMATED NEUTROPHIL # 8.1 TH/MM3 (1.8-7.7); BASOPHIL # 0.1 TH/MM3 (0-0.2); BASOPHIL % 0.8 % (0.0-2.0); EOSINOPHIL # 0.6 TH/MM3 (0-0.4); EOSINOPHIL % 5.3 % (0.0-4.0); HEMATOCRIT 30.6 % (35.0-46.0); HEMO FLAGS DIFF FINAL; LYMPH % 12.7 % (9.0-44.0); LYMPHOCYTE # 1.5 TH/MM3 (1.0-4.8); MEAN CELL VOLUME 88.7 FL (80.0-100.0); MEAN CORPUSCULAR HEMOGLOBIN 28.6 PG (27.0-34.0); MEAN CORPUSCULAR HGB CONC 32.2 % (32.0-36.0); MONO % 10.9 % (0.0-8.0); NEUT % 70.3 % (16.0-70.0); PLATELET COUNT 335 TH/MM3 (150-450); RED BLOOD COUNT 3.45 MIL/MM3 (4.00-5.30); RED CELL DISTRIBUTION WIDTH 15.6 % (11.6-17.2); WHITE BLOOD COUNT 11.5 TH/MM3 (4.0-11.0)
[2017-09-21 13:10] LABS: BICARBONATE 25.6 MEQ/L (21.0-32.0); MAGNESIUM 1.8 MG/DL (1.5-2.5); POTASSIUM 3.9 MEQ/L (3.5-5.1)
--- NOTE | 2017-09-21 15:07 | HHI.PR ---
Subjective Remarks Follow-up dizziness. Complained of increased dizziness today. She was orthostatic systolic blood pressure dropped to low 90s. Discussed with RN, she will be on bedrest and start IV fluids for 1 L history of congestive heart failure. So far no bowel movement today but had 3 episodes yesterday patient not able to tell if loose Objective Vitals Vital Signs Date Time Temp Pulse Resp B/P (MAP) Pulse Ox O2 Delivery O2 Flow Rate FiO2 09/21/17 04:00 98.2 88 22 124/58 (80) 95 09/21/17 00:00 98.3 68 20 121/57 (78) 98 09/21/17 00:00 Room Air 09/20/17 21:00 Room Air 09/20/17 20:00 98.0 71 22 129/58 (81) 97 09/20/17 16:00 97.6 75 20 113/56 (75) 95 I/O 09/20/17 09/20/17 09/20/17 09/21/17 09/21/17 09/21/17 07:00 15:00 23:00 07:00 15:00 23:00 Intake Total 680 ml 360 ml 720 ml 560 ml Balance 680 ml 360 ml 720 ml 560 ml Intake Oral 680 ml 360 ml 720 ml 560 ml # Voids 6 2 3 6 # Bowel Movements 4 1 4 Result Diagram: 09/21/17 1240 09/21/17 1240 Objective Remarks GENERAL: Well-developed, well-nourished in no distress. SKIN: Warm and dry. CARDIOVASCULAR: Regular rate and rhythm. RESPIRATORY: No accessory muscle use. Clear to auscultation. Breath sounds equal bilaterally. GASTROINTESTINAL: Abdomen soft, non-tender, nondistended. MUSCULOSKELETAL: Extremities without clubbing, cyanosis, or edema. No obvious deformities. NEUROLOGICAL: Awake and alert. No obvious cranial nerve deficits. Motor grossly within normal limits. Five out of 5 muscle strength in the arms and legs. Normal speech. PSYCHIATRIC: Appropriate mood and affect; insight and judgment normal. Procedures cardiac cath Incision and drainage of bilateral ischiorectal abscesses with bilateral fistulotomy. A/P Problem List: (1) Near syncope ICD Code: R55 - Syncope and collapse (2) Fall ICD Code: W19.XXXA - Unspecified fall, initial encounter (3) Dizziness ICD Code: R42 - Dizziness and giddiness (4) Scalp laceration ICD Code: S01.01XA - Laceration without foreign body of scalp, initial encounter Status: Acute (5) Renal insufficiency ICD Code: N28.9 - Disorder of kidney and ureter, unspecified (6) Leukocytosis ICD Code: D72.829 - Elevated white blood cell count, unspecified (7) CHF (congestive heart failure) ICD Code: I50.9 - CHF (congestive heart failure) Status: Acute (8) DM (diabetes mellitus) ICD Code: E11.9 - Type 2 diabetes mellitus without complications Assessment and Plan Fall secondary to Presyncope-complained of acute dizziness and presyncopal event , troponin negative. EKG with PVCs and lateral T wave inversions. Patient had an episode of ventricular tachycardia. With head trauma, CT scan of the head unremarkable. Scalp laceration status post concha from the emergency department. Wound care and physical therapy Ventricular tachycardia-nonsustained- cardiology consult appreciated- s/p cardiac cath with; 1. Widely patent ostial and mid right coronary artery stents placed a year ago. 2. Mild to moderate restenosis of what appears to be a mid LAD stent. 3. Moderate disease of a relatively small caliber ramus intermedius. 4. Normal left ventricular function with estimated ejection fraction of 60%. Recommended medical management Continue aspirin, coreg with close monitoring of BP, Effient and Pravachol Patient also has history of chronic dizziness, on meclizine. Worse today with orthostatic vital signs. Repeat CBC and BMP. Hold Coreg and give gentle IV hydration for 1 L because of history of heart failure. Fall precautions bilateral ischiorectal abscesses- s/p Incision and drainage with bilateral fistulotomy. management per colorectal surgery- continue Flagyl and wound care. Status post Cipro C. difficile. Seems to be improving. Continue Flagyl. Monitor for dehydration Chronic systolic and diastolic CHF-Cath 08/14/16 s/p JOHN to RCA, noted to have Diastolic Dysfunction. Echo 01/24/15 w/ EF 40-45%. States recent Echo w/ Dr. Caruso w/ improved EF. No evidence of fluid overload at this time. Resumed home medications. 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 Hold Metformin. Fingerstick stable DVT Prophylaxis: SCD/Teds. Discharge Planning Not ready for discharge today because of orthostatic vital signs. Discussed with case management Problem Qualifiers (1) Scalp laceration: Qualified Codes: S01.01XA - Laceration without foreign body of scalp, initial encounter Shaheen Duran MD Sep 21, 2017 15:07
[2017-09-21] MEDS: ACETAMINOPHEN/HYDROcodone 325 MG/5 MG TAB PO PRN (15:44)
[2017-09-21] MEDS: PRAVASTATIN SOD 40 MG TAB PO SCH (22:08)
[2017-09-22] VITALS: BP 131/62; PULSE 86; RESP 18; TEMP 98.1; O2SAT 97
[2017-09-22] MEDS: metroNIDAZOLE 500 MG TAB PO SCH ×2 (00:31→09:08)
[2017-09-22] MEDS: diphenhydrAMINE HCL 25 MG CAP PO PRN ×2 (01:54→09:06)
[2017-09-22 04:00] VITALS: BP 146/85; PULSE 91; RESP 18; TEMP 97.7; O2SAT 97
[2017-09-22] MEDS: LEVOTHYROXINE SODIUM 50 MCG TAB PO SCH (05:59)
[2017-09-22 08:00] VITALS: BP_SYST 126; BP_SYST 144; BP_SYST 145; BP_DIAS 58; BP_DIAS 64; BP_DIAS 65; PULSE 84; RESP 20; TEMP 98.2; O2SAT 96
[2017-09-22] MEDS: INSULIN ASPART SUPPLEMENTAL SCALE SQ SCH ×2 (08:00→12:00)
[2017-09-22 08:31] LABS: AUTOMATED NEUTROPHIL # 6.5 TH/MM3 (1.8-7.7); BASOPHIL # 0.1 TH/MM3 (0-0.2); BASOPHIL % 0.7 % (0.0-2.0); EOSINOPHIL # 0.6 TH/MM3 (0-0.4); EOSINOPHIL % 6.2 % (0.0-4.0); HEMATOCRIT 31.7 % (35.0-46.0); HEMO FLAGS DIFF FINAL; LYMPH % 16.3 % (9.0-44.0); LYMPHOCYTE # 1.6 TH/MM3 (1.0-4.8); MEAN CELL VOLUME 89.1 FL (80.0-100.0); MEAN CORPUSCULAR HEMOGLOBIN 28.8 PG (27.0-34.0); MEAN CORPUSCULAR HGB CONC 32.3 % (32.0-36.0); MONO % 11.8 % (0.0-8.0); PLATELET COUNT 359 TH/MM3 (150-450); RED BLOOD COUNT 3.56 MIL/MM3 (4.00-5.30); RED CELL DISTRIBUTION WIDTH 16.1 % (11.6-17.2)
[2017-09-22 08:52] LABS: MAGNESIUM 1.8 MG/DL (1.5-2.5)
[2017-09-22] MEDS ORDERED: CARVEDILOL 3.125 MG TAB PO SCH (09:00)
[2017-09-22] MEDS: ASPIRIN EC 81 MG TABEC PO SCH (09:07)
[2017-09-22] MEDS: PRASUGREL 10 MG TAB PO SCH (09:07)
[2017-09-22] MEDS: SODIUM CHLORIDE 0.9% FLUSH 10 ML FLUSH IV FLUSH SCH (09:07)
[2017-09-22 12:00] VITALS: BP 136/60; PULSE 83; RESP 20; TEMP 97.9; O2SAT 97
--- NOTE | 2017-09-22 13:11 | HHI.DS ---
Discharge Summary Admission Date Sep 13, 2017 at 12:57 Discharge Date: Sep 22, 2017 Admitting Diagnosis dizziness, leukocytosis (1) Near syncope ICD Code: R55 - Syncope and collapse Diagnosis: Principal (2) Fall ICD Code: W19.XXXA - Unspecified fall, initial encounter Diagnosis: Principal (3) Dizziness ICD Code: R42 - Dizziness and giddiness Diagnosis: Principal (4) Scalp laceration ICD Code: S01.01XA - Laceration without foreign body of scalp, initial encounter Diagnosis: Principal Status: Acute (5) CHF (congestive heart failure) ICD Code: I50.9 - CHF (congestive heart failure) Diagnosis: Principal Status: Acute (6) DM (diabetes mellitus) ICD Code: E11.9 - Type 2 diabetes mellitus without complications Diagnosis: Principal Procedures cardiac cath Incision and drainage of bilateral ischiorectal abscesses with bilateral fistulotomy. Brief History - From Admission This is a 66-year-old female with a PMH of HTN, CAD, CHF (Echo 01/24/15 w/ EF 40- 45%), DM and Chronic Dizziness who was brought to the ER by EMS secondary to fall w/ near syncope. Per patient she was walking into her bathroom when she had sudden dizziness, called for Daughter but she didn't make it to her in time , +hit head on counter. Pt denies LOC. States she has history of chronic dizziness for which she is on Meclizine. PCP recently decreased Bumex dose due to dizziness. Follows w/ Dr. Caruso as outpatient, states recent Echo 1mo ago w/ improved EF, no records available. On ASA/Plavix. On arrival, BP 150/61 , HR 104, O2 sat 100% on 2L NC. WBC 16.4. Creatinine 1.79, previously 3.03 on 06/25/17. Troponin negative. CT Head Negative. CBC/BMP: 09/22/17 0743 09/22/17 0743 Significant Findings Laboratory Tests Test 09/21/17 12:40 09/22/17 07:43 White Blood Count 11.5 TH/MM3 (4.0-11.0) Red Blood Count 3.45 MIL/MM3 (4.00-5.30) 3.56 MIL/MM3 (4.00-5.30) Hemoglobin 9.9 GM/DL (11.6-15.3) 10.2 GM/DL (11.6-15.3) Hematocrit 30.6 % (35.0-46.0) 31.7 % (35.0-46.0) Neutrophils (%) (Auto) 70.3 % (16.0-70.0) Monocytes (%) (Auto) 10.9 % (0.0-8.0) 11.8 % (0.0-8.0) Eosinophils (%) (Auto) 5.3 % (0.0-4.0) 6.2 % (0.0-4.0) Neutrophils # (Auto) 8.1 TH/MM3 (1.8-7.7) Monocytes # (Auto) 1.3 TH/MM3 (0-0.9) 1.2 TH/MM3 (0-0.9) Eosinophils # (Auto) 0.6 TH/MM3 (0-0.4) 0.6 TH/MM3 (0-0.4) Creatinine 1.25 MG/DL (0.50-1.00) 1.25 MG/DL (0.50-1.00) Random Glucose 169 MG/DL (74-106) 111 MG/DL (74-106) Calcium Level 8.0 MG/DL (8.5-10.1) 8.0 MG/DL (8.5-10.1) Chloride Level 109 MEQ/L (98-107) 109 MEQ/L (98-107) Estimat Glomerular Filtration Rate 42 ML/MIN (>89) 42 ML/MIN (>89) Imaging Last Impressions Head CT 09/12/17 0000 Signed Impressions: Service Date/Time: Tuesday, September 12, 2017 21:41 - CONCLUSION: No bleed or other acute intracranial abnormality. Mild sinus disease. Avery Jonas MD PE at Discharge GENERAL: Well-developed, well-nourished in no distress. SKIN: Warm and dry. CARDIOVASCULAR: Regular rate and rhythm. RESPIRATORY: No accessory muscle use. Clear to auscultation. Breath sounds equal bilaterally. GASTROINTESTINAL: Abdomen soft, non-tender, nondistended. MUSCULOSKELETAL: Extremities without clubbing, cyanosis, or edema. No obvious deformities. NEUROLOGICAL: Awake and alert. No obvious cranial nerve deficits. Motor grossly within normal limits. Five out of 5 muscle strength in the arms and legs. Normal speech. PSYCHIATRIC: Appropriate mood and affect; insight and judgment normal. Hospital Course Fall secondary to Presyncope-complained of acute dizziness and presyncopal event , troponin negative. EKG with PVCs and lateral T wave inversions. Patient had an episode of ventricular tachycardia. With head trauma, CT scan of the head unremarkable. Scalp laceration status post concha from the emergency department. Wound care and physical therapy Patient also has history of chronic dizziness, on meclizine. Worse with orthostatic vital signs. Repeat CBC and BMP unremarkable. Improved with fluid bolus. Fall precautions Ventricular tachycardia-nonsustained- cardiology consult appreciated- s/p cardiac cath with; 1. Widely patent ostial and mid right coronary artery stents placed a year ago. 2. Mild to moderate restenosis of what appears to be a mid LAD stent. 3. Moderate disease of a relatively small caliber ramus intermedius. 4. Normal left ventricular function with estimated ejection fraction of 60%. Recommended medical management Continue aspirin, coreg with close monitoring of BP, Effient and Pravachol bilateral ischiorectal abscesses- s/p Incision and drainage with bilateral fistulotomy. Stable management per colorectal surgery- continue Flagyl and wound care/heart sitz bath. Status post Cipro C. difficile. Improving. Continue Flagyl. Monitor for dehydration Chronic systolic and diastolic CHF-Cath 08/14/16 s/p JOHN to RCA, noted to have Diastolic Dysfunction. Echo 01/24/15 w/ EF 40-45%. States recent Echo w/ Dr. Caruso w/ improved EF. No evidence of fluid overload at this time. Resumed home medications. 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 Hold Metformin. Fingerstick stable DVT Prophylaxis: SCD/Teds. Pt Condition on Discharge: Stable Discharge Disposition: Discharge to SNF Discharge Time: > 30 minutes Discharge Instructions DIET: Follow Instructions for: Heart Healthy Diet, Diabetic Diet Activities you can perform: Regular-No Restrictions Activities to Avoid: Driving Follow up Referrals: Appointment for Follow Up - 1 Week with Avery Ozuna MD Cardiology - 1 Week PCP Follow-up - 2-3 Days New Medications: Insulin Aspart Inj (Novolog Inj) 1,000 Unit/10 Ml Vial 1-9 UNITS SQ ACHS for Blood Sugar Management, #10 ML 0 Refills sugars less than 70,(0)units; sugars 150-199,(1) unit; sugars 200-249,(3) units; sugars 250-299,(5) units; sugars 300-349,(7) units; sugars greater than 349,(9) units. inform PCP if < 70 or > 400. Hydrocodone/Acetaminophen (Hydrocodone-Acetamin 10-325 mg) 10 Mg-325 Mg Tablet 1 TAB PO Q6H PRN for PAIN SCALE 6 TO 10, #12 TAB Metronidazole (Flagyl) 500 Mg Tab 500 MG PO Q8H for Infection, #36 TAB dc 09/30/17 Continued Medications: Aspirin (Ecotrin Low Strength) 81 Mg Tabec 81 MG PO DAILY for Prevent Blood Clot for 30 Days, TAB.EC Carvedilol 3.125 mg (Coreg 3.125 mg) 3.125 Mg Tab 3.125 MG PO Q12 for Blood Pressure Management for 30 Days, TAB Cholecalciferol (Vitamin D) 2,000 Unit Cap Levothyroxine Sodium (Levothyroxine 50 mcg) 50 Mcg Tab 50 MCG PO DAILY, TAB Potassium Chloride (Klor-Con 10) 10 Meq Tabcr 10 MEQ PO BID for Electrolyte Replacement for 30 Days, TAB Take twice a day with Lasix. Prasugrel Hcl (Effient) 10 Mg Tab 10 MG PO DAILY, #30 TAB Pravastatin Sodium (Pravastatin Sodium) 40 Mg Tab 40 MG PO HS for Cholesterol Management for 30 Days, TAB Discontinued Medications: Furosemide (Lasix 20 Mg Tab) 20 Mg Tab 20 MG PO BID for Prevent Heart Failure for 30 Days, TAB Take at 8am and 3pm every day. Take with potassium replacement. Lisinopril 10 mg (Prinivil 10 mg) 10 Mg Tab 10 MG PO DAILY for Blood Pressure Management for 30 Days, TAB Metformin 500 mg (Glucophage 500 mg) 500 Mg Tab 500 MG PO BIDPC for Blood Sugar Management for 30 Days, TAB Shaheen Duran MD Sep 22, 2017 13:11
--- NOTE | 2017-09-22 13:11 | HHI.PR ---
Subjective Remarks Pt really not OOB ambulating. Needs more active PT. Becoming deconditioned. Objective Vital Signs Date Time Temp Pulse Resp B/P (MAP) Pulse Ox O2 Delivery O2 Flow Rate FiO2 09/22/17 12:00 97.9 83 20 136/60 (85) 97 09/22/17 08:00 98.2 84 20 145/65 (91) 96 144/64 (90) 126/58 (80) 09/22/17 07:05 18 09/22/17 04:00 97.7 91 18 146/85 (105) 97 09/22/17 00:00 98.1 86 18 131/62 (85) 97 09/21/17 20:00 98.7 80 18 117/55 (75) 99 09/21/17 16:00 97.4 83 20 128/60 (82) 97 09/21/17 14:25 85 141/61 (87) 09/21/17 14:25 97 118/58 (78) 09/21/17 14:25 95 127/61 (83) I/O 09/21/17 09/21/17 09/21/17 09/22/17 09/22/17 09/22/17 07:00 15:00 23:00 07:00 15:00 23:00 Intake Total 560 ml 120 ml 240 ml Balance 560 ml 120 ml 240 ml Intake Oral 560 ml 120 ml 240 ml # Voids 6 2 2 # Bowel Movements 4 2 2 Result Diagram: 09/22/17 0743 09/22/17 0743 Objective Remarks VS-S Abd: benign Rectal: wound clean with mild debris. Dressings clean Assessment and Plan Assessment and Plan Stable post op Needs OOB and PT Continue aggressive wound care as instructed. Avery Ozuna MD Sep 22, 2017 13:11
== END 2017-09-22 16:36 | DRG 988 ==
LOC: NEPC 20:39 → NEDA 22:16 → NEPGCP 23:39 → HCIN 09-13 04:17 → OBSVTOIN 09-13 12:57 → HCIS 09-15 15:36 → N04B 09-18 15:34
PROVIDERS: ADMIT Hospitalist; ATTEND Hospitalist
PROC: 0HQ0XZZ Repair Scalp Skin, External Approach (ICD-10-PCS; 2017-09-13)
PROC: 4A023N7 Measurement of Cardiac Sampling and Pressure, Left Heart, Percutaneous Approach (ICD-10-PCS; 2017-09-14)
PROC: B2111ZZ Fluoroscopy of Multiple Coronary Arteries using Low Osmolar Contrast (ICD-10-PCS; 2017-09-14)
PROC: B2151ZZ Fluoroscopy of Left Heart using Low Osmolar Contrast (ICD-10-PCS; 2017-09-14)
PROC: 0J9B0ZZ Drainage of Perineum Subcutaneous Tissue and Fascia, Open Approach (ICD-10-PCS; principal; 2017-09-16 06:53)
DX: I95.1 Orthostatic hypotension (principal); I47.2 Ventricular tachycardia; A04.72 Enterocolitis due to Clostridium difficile, not specified as recurrent; I50.42 Chronic combined systolic (congestive) and diastolic (congestive) heart failure; I13.0 Hypertensive heart and chronic kidney disease with heart failure and stage 1 through stage 4 chronic kidney disease, or unspecified chronic kidney disease; N18.4 Chronic kidney disease, stage 4 (severe); T82.855A Stenosis of coronary artery stent, initial encounter; K61.3 Ischiorectal abscess; E11.22 Type 2 diabetes mellitus with diabetic chronic kidney disease; S01.01XA Laceration without foreign body of scalp, initial encounter; W18.30XA Fall on same level, unspecified, initial encounter; Y93.01 Activity, walking, marching and hiking; H91.90 Unspecified hearing loss, unspecified ear; I25.10 Atherosclerotic heart disease of native coronary artery without angina pectoris; N28.9 Disorder of kidney and ureter, unspecified; R42 Dizziness and giddiness; E78.5 Hyperlipidemia, unspecified; R53.1 Weakness; Z79.02 Long term (current) use of antithrombotics/antiplatelets; Y92.019 Unspecified place in single-family (private) house as the place of occurrence of the external cause; Z95.5 Presence of coronary angioplasty implant and graft
CPT/HCPCS: 12001; 70450; 76937; 80048; 80053; 82272; 82550; 82948; 83735; 84484; 85025; 86403; 87070; 87147; 87186; 87205; 87493; 93005; 93458; C1769; C1893; G0378; G8987-GP; G8988-GP; J0282; J0295; J1644; J1815; J2250; J2270; J3010; J3370; J7030; J7040; J7050; J7060; Q9967